=== PATIENT | male | born 1965 | race African-American/Black ===

== ENCOUNTER 2018-03-03 15:29 | Inpatient (IN) | payer MEDICAID, SELFPAY ==
[2018-03-03 15:30] VITALS: BP 131/91; PULSE 108; RESP 16; TEMP 36.9; O2SAT 98; BMI 27.1
--- NOTE | 2018-03-03 15:53 | CT_ITS ---
STUDY: CT ABDOMEN AND PELVIS WITHOUT CONTRAST REASON FOR EXAM: Male, 53 years old. Pain and constipation RADIATION DOSAGE (If Supplied By Facility): CTDIvol = ( 7.91 ) mGy, DLP = ( 381.40 ) mGycm TECHNIQUE: Transaxial images were obtained from the dome of the diaphragm to the symphysis pubis without oral contrast, and without intravenous contrast. Sagittal and coronal images were reconstructed. Individualized dose optimization techniques were used for this CT. COMPARISON: January 02, 2015 FINDINGS: The visualized lung bases are unremarkable. The visualized portions of the heart are within normal limits. There is a trace of fluid in the right subphrenic space Normal liver. Contracted thick-walled gallbladder without calcified stones.. Normal spleen. Normal pancreas. Normal bilateral adrenal glands. Tiny nonobstructing calculus in left kidney. No evidence for renal obstruction or ureteral calculus. There are simple cysts seen within each kidney Normal visualized stomach. There are multiple distended loops of fluid-filled proximal and mid small bowel with a transition point in the mid to distal ileum possibly representing partial small bowel obstruction.. There is diffuse fecal retention seen within the colon.. No evidence for acute appendicitis Normal abdominal aorta. Normal inferior vena cava. Normal retroperitoneum. Normal urinary bladder. Normal abdominal wall. Normal osseous structures. CT/Abdomen/Pelvis without Cont IMPRESSION: Findings which may be consistent with partial small bowel obstruction at the level of the mid to distal ileum.. Contracted thick-walled gallbladder without calcified stones likely physiologic however if concern for gallbladder disease ultrasound recommended. Fluid within the right subphrenic space Other findings as above. Electronically Signed: Shimon Dumont MD at 16:39 EDT , Service support ,
--- NOTE | 2018-03-03 15:57 | ED.DCSUM_ITS ---
- ER Visit Summary Date of Service: 03/03/18 Chief Complaint: Abdominal pain, vomiting History of Present Illness: The patient is a 53 M presents 3 day history abdominal pain, vomiting. Increasing. Vomited 3 times yesterday, 5 times today. No hematemesis. No bowel movement for 3 days. Decreased urine output. History of bowel obstruction, last time 2014. He states had one prior to that in long-term in 2009 requiring surgery. This feels similar. Complains of sweats. No allergies. Records noted 2014 had a bowel obstruction requiring lysis of adhesions, performed by Dr. Brizuela. Physical Examination: General: Alert and oriented ?3, mild distress HEENT: Normocephalic, atraumatic. Moist mucosa membranes Neck: supple, nontender. Cardiovascular: Regular tachycardic rate and rhythm, no murmurs Respiratory: Normal breath sounds, symmetric, no distress Abdomen: Soft, generalized tenderness, mild distention, midline incision from laparotomy, small ventral hernia superiorly. Extremities: Nontender, no edema, pulses intact ?4 Neuro: no focal neurological deficits. Test Results: WBC 7.0. Hemoglobin 14. Creatinine 1.6. Lipase 138. Liver enzymes normal. Lactic acid 2.1. CT abdomen and pelvis: Partial small bowel obstruction mid to distal ileum, thickened gallbladder wall. Emergency Department Course and Treatment: Patient presents similar symptoms with bowel obstruction. Hypoactive bowel sounds. Workup initially. IV fluids morphine Zofran given. Workup notes a partial small bowel obstruction mid to distal ileum. Thickened gallbladder wall. Normal lipase and liver enzymes. Reevaluation was improving however states pain slightly returning. He agreed with NG tube placement. This was ordered. Pending placement along with KUB. Lactic acid 2.1, continue IV fluids. White count 7. Creatinine 1.61, however chronic from previous labs. I did speak with nurse covering for Dr. Brizuela, they will follow as an inpatient. Spoke with hospitalist, Dr. San who agrees to admit. Treatment Plan: [] Disposition: Admission Impression: 1. Partial small bowel obstruction 2. Abdominal pain 3. Chronic kidney disease This note was generated with [employer] software. It may contain incorrect words, spelling, and punctuation that were not noted in review of the chart prior to signing ED Disposition - Plan for ED Patient: Disposition: Acute Care Hospital [facility] Chief Complaint: Constipation Diagnosis: Partial small bowel obstruction, Abdominal pain, Chronic kidney disease Referrals: Care Physician,No Primary [Primary Care Provider] -
[2018-03-03] MEDS: Ondansetron 4 MG/2 ML Vial IV (16:11)
[2018-03-03] MEDS: Morphine 4 MG/ML Syringe IV (16:11)
[2018-03-03] MEDS: 0.9% Normal Saline 1,000 ML 1000 ML IV (16:12)
[2018-03-03 16:35] LABS: Absolute Lymphocyte Count 1.56 X10^3/ul (0.83-4.51); Absolute Neutrophil Count 4.8 X10^3/uL (2.0-7.7); Basophil# 0.04 X10^3/uL; Basophil% 0.6 % (0-1); Eosinophil# 0.13 X10^3/uL; Eosinophils% 1.9 % (0-5); Hematocrit 40.3 % (40-54); Lymphocyte # 1.56 X10^3/ul (4.0); Lymphocyte % 22.4 % (19-41); Mean Corp Hgb Conc 34.7 g/gl (32-36); Mean Corpuscular Hgb 30.4 pg (27.0-32.0); Mean Corpuscular Volume 87.4 fL (80-94); Mean Platelet Vol. 10.2 fl (6.2-12.0); Monocyte# 0.45 X10^3/uL; Monocyte% 6.5 % (0-10); Neutrophil # 4.76 X10^3/uL (2.7-7.7); Neutrophil % 68.5 % (47-70); POSITIVE COUNT NO; POSITIVE DIFFERENTIAL NO; POSITIVE MORPHOLOGY NO; Platelet Count 231 K/mm3 (150-450); RBC Distribution Width CV 13.8 % (11.6-14.6); RBC Distribution Width SD 44.3 fl (35.1-43.9); Red Blood Count 4.61 M/mm3 (4.6-6.2)
[2018-03-03 16:44] LABS: ALB/GLOB Ratio 0.9 RATIO (0.9-2.4); AST(SGOT) 23 U/L (15-37); Alanine Aminotransfer ALT/SGPT 37 U/L (16-61); Albumin, Serum 3.1 g/dL (3.2-5.0); Alkaline Phosphatase 121 U/L (45-117); Anion Gap 8 (5-15); BUN 14 mg/dL (7-18); BUN/Creat Ratio 8.7 RATIO (10-20); Calcium,Total 8.9 mg/dL (8.5-10.1); Chloride 109 mmol/L (98-107); Creatinine, Serum 1.61 mg/dL (0.70-1.30); EST Glomerular Filtration Rate 48 mL/min (>60); Est Glom Filt Rate - Afr Amer 58 mL/min (>60); Globulin 3.6 g/dL (2.2-4.2); Glucose 228 mg/dL (74-106); Lipase 138 U/L (73-393); Potassium 3.9 mmol/L (3.5-5.1); Protein, Total 6.7 g/dL (6.4-8.2); Sodium Level 141 mmol/L (136-145)
[2018-03-03 17:10] LABS: Lactic Acid 2.1 mmol/L (0.4-2.0)
--- NOTE | 2018-03-03 17:10 | ED.RN ---
DR. CRUZ NOTIFIED OF LACTIC ACID RESULT OF 2.1 FROM LAB. NO ORDERS GIVEN.
--- NOTE | 2018-03-03 17:30 | PCM.HP.STD ---
Problem List (1) Partial small bowel obstruction Status: Acute (2) Chronic kidney disease Status: Chronic (3) Noncompliance with medication regimen Status: Chronic (4) HTN (hypertension) Status: Chronic (5) DM type 2 (diabetes mellitus, type 2) Status: Chronic (6) Tobacco dependence Status: Chronic History of Present Illness Date of Admission: 03/03/18 Chief Complaint: Abdominal pain, nausea vomiting. The patient is a 53 year old M with past medical history as mentioned above presented to the emergency room because of abdominal pain, nausea vomiting. His symptoms started 3 days ago with abdominal pain, generalized abdominal pain, dull aching pain, 10 out of 10 in severity, not radiating, intermittent, associated with nausea and vomiting as well as the patient and without aggravating or relieving factors. He mentioned that he has no bowel movement for the last 3 days. He has a history of small bowel obstruction back in Dec, 2014 that required laparoscopic lysis of adhesions and laparoscopic appendectomy. He mentioned that he had another episode of bowel obstruction back in 2009 and also required surgery. In the ED, his vital signs were stable. His routine blood work is remarkable for creatinine of 1.61, otherwise unremarkable. Lactic acid is 2.1. LFT and lipase were normal. CT scan abdomen and pelvis without contrast revealed findings consistent with partial small bowel obstruction. He is being admitted for partial small bowel obstruction, dehydration. Past Medical History Past Medical History (Chronic Problems): Chronic Problems Chronic kidney disease (Chronic) Noncompliance with medication regimen (Chronic) HTN (hypertension) (Chronic) DM type 2 (diabetes mellitus, type 2) (Chronic) Tobacco dependence (Chronic) Allergies No Known Allergies Allergy (Verified 03/03/18 15:31) Home Medications: Ambulatory Orders Medication Instructions Recorded Acetaminophen 1,000 mg PO BID 01/06/17 Amlodipine [Norvasc] 5 mg PO DAILY 01/06/17 Ascorbic Acid 500 mg PO DAILY 01/06/17 Folic Acid 1 mg PO DAILY@0800 01/06/17 Insulin NPH Hum/Reg Insulin Hm 10 unit SQ Q6H 01/06/17 [Novolin 70-30 100 Unit/ml Vial] Metoprolol Tartrate [Lopressor 25 mg PO BID 01/06/17 (Beta Jace)] Multivitamin [Daily Multiple 1 each PO DAILY 01/06/17 Vitamin] Oxycodone [Oxyir] 5 mg PO Q4H PRN PRN 01/06/17 Thiamine HCl [B-1] 100 mg PO DAILY 01/06/17 Surgical History: appendectomy, - - Laparoscopic lysis of adhesions for small bowel obstruction. Appendectomy. Psychiatric History: No pertinent psych hx Smoking Status: Current every day smoker Tobacco Use: Cigarettes Alcohol: Occasional Drugs: None - *Family History Paternal History Items: Diabetes Maternal History Items: No pertinent history Review of Systems Constitutional: Reports: Anorexia. Denies: Chills, Fever, Weakness Eyes: Denies: Blurred vision, Double vision, Drainage, Redness HEENT: Denies: Difficulty Hearing, Ear Pain, Eye Pain, Nasal Congestion, Sinus Drainage, Sore Throat Cardiovascular: Denies: Chest Pain, Chest Pressure, Chest Tightness, Palpitations, Syncope Respiratory: Denies: Cough, Pleuritic Pain, Shortness of Breath, Sputum production, Wheezing Gastrointestinal: Reports: Abdominal Pain, Constipation, Nausea, Vomiting. Denies: Diarrhea, Hematochezia, Melena Genitourinary: Denies: Dysuria, Frequency, Hematuria Musculoskeletal: Denies: Arm Pain, Back Pain, Foot Pain Skin: Denies: Dryness, Rash Neurological: Denies: Balance problems, Change in Speech, Headaches, Incoordination, Numbness Psychiatric: Denies: Anxiety, Depression VTE Information - Inpt Only VTE Present on Admission: No VTE Mechan Device Prophylaxis: SCD's, None VTE Pharm Prophylaxis ordered?: No Patient Problems: Active and Suspected Problems Partial small bowel obstruction (Acute) - Physical Exam General: Alert, Oriented x3, Cooperative, - - Restless, anxious. HEENT: Atraumatic, PERRLA, EOMI, Normocephalic Oral: Moist Mucosa, No Gingival or Mucosal Lesions/ Ulcerations Neck: Supple, No JVD, Negative Carotid Bruits, Trachea Midline, Thyroid Normal Size and Texture Lungs: Clear to auscultation, No rhonchi, No wheeze, No rales, Diminished Cardiovascular: Regular rate, Regular Rhythm, Normal S1, Normal S2, PMI Normal Abdomen: No Hepato-splenomegaly, Hypoactive Bowel Sounds, Distended, Tender, - - Voluntary guarding. Extremities: No clubbing, No cyanosis, No edema Skin: No rashes, No breakdown Lymphatic: No Cervical, Supraclavicular, or Inguinal Adenopathy Neurological: Cranial nerves II-XII grossly intact, Motor Exam 5/5 strength throughout Psych/Mental Status: Anxious, Restless, Alert and oriented to time, place, person, mood and affect Vital Signs Temp Pulse Resp BP Pulse Ox 98.5 F 108 H 16 131/91 H 98 03/03/18 15:30 03/03/18 15:30 03/03/18 15:30 03/03/18 15:30 03/03/18 15:30 Weight: 200 lb Body Mass Index (BMI) 27.1 Finger Stick Blood Glucose 287 Laboratory Tests Past 24 Hrs 03/03/18 03/03/18 03/03/18 16:15 16:15 16:15 WBC 7.0 RBC 4.61 Hgb 14.0 Hct 40.3 MCV 87.4 MCH 30.4 MCHC 34.7 RDW 13.8 RDW Differential 44.3 H Plt Count 231 MPV 10.2 Immature Gran % (Auto) 0.100 Neut % (Auto) 68.5 Lymph % (Auto) 22.4 [place] % (Auto) 6.5 Eos % (Auto) 1.9 Baso % (Auto) 0.6 Absolute Neuts (auto) 4.8 Absolute Lymphs (auto) 1.56 Total Counted Not Reportable Sodium 141 Potassium 3.9 Chloride 109 H Carbon Dioxide 24.0 Anion Gap 8 BUN 14 Creatinine 1.61 H Estim Creat Clear Calc 56.90 Est GFR (MDRD) Af Amer 58 L Est GFR (MDRD) Non-Af 48 L BUN/Creatinine Ratio 8.7 L Glucose 228 H Lactic Acid 2.1 H Calcium 8.9 Total Bilirubin 0.20 AST 23 ALT 37 Alkaline Phosphatase 121 H Total Protein 6.7 Albumin 3.1 L Globulin 3.6 Albumin/Globulin Ratio 0.9 Lipase 138 Clinical Impression(s) from Imaging Studies Abdomen/Pelvis CT 03/03/18 15:53 IMPRESSION: Findings which may be consistent with partial small bowel obstruction at the level of the mid to distal ileum.. Contracted thick-walled gallbladder without calcified stones likely physiologic however if concern for gallbladder disease ultrasound recommended. Fluid within the right subphrenic space Other findings as above. Electronically Signed: Shimon Dumont MD at 16:39 EDT , Service support , Assessment/Plan All Active Problems Partial small bowel obstruction (Acute) Hyperglycemia (Resolved) Hypokalemia (Resolved) This is a 53 years old male patient presented to the medicine because of abdominal pain, nausea and vomiting and was found to have partial small bowel obstruction on CT scan abdomen in context of history of small bowel obstruction status post lysis of adhesions. #1 partial small bowel obstruction: CT scan abdomen and pelvis without contrast reviewed, findings consistent with partial small bowel obstruction. He has a history of small bowel obstruction back in Dec, 2014 that required laparoscopic lysis of adhesions and laparoscopic appendectomy. At this time, vital signs are stable. Routine blood work reviewed. Plan: Admit to [facility] floor, cardiac monitoring, keep on n.p.o., IV fluids, IV antiemetics, IV morphine as needed for pain, repeat KUB tomorrow morning, general surgery consult, repeat CBC and BMP tomorrow morning, PT OT evaluation and treatment. #2 dehydration: Secondary to above. Admission creatinine is 1.61. Over the last year, his creatinine has been around 1.3-1.4 mg/dL. Plan: IV fluids, input output chart, repeat BMP tomorrow morning #3 hypertension: Blood pressure stable, continue home medications when home medication list updated, start IV Cardizem as needed. #4 type 2 diabetes mellitus: ADA diet, Accu-Cheks, insulin sliding scale, continue NPH insulin when home medication list updated. #5 DVT prophylaxis: SCDs. This note was generated with [email or web address] dictation software. It may contain incorrect words, spelling, and punctuation that were not noted in checking the note before signing. Code Visit Inpatient E&M: 13523 Init Hosp L3
[2018-03-03 17:59] VITALS: BMI 26.7
[2018-03-03 18:04] VITALS: BMI 26.7
[2018-03-03 18:21] VITALS: BP 139/72; PULSE 63; RESP 20; TEMP 37.8; O2SAT 98
--- NOTE | 2018-03-03 18:36 | NURSING ---
Home med rec. completed with patient and called [facility]. Pt reports he does not take his medications as he should.
[2018-03-03] MEDS: 0.9% Normal Saline 1,000 ML 100 ML IV (19:01)
[2018-03-03] MEDS: Morphine 2 MG/ML Syringe IV ×3 (19:02→22:52)
[2018-03-03 19:16] LABS: Bedside Glucose 191 mg/dL (70-110)
--- NOTE | 2018-03-03 20:18 | CON.PCM_ITS ---
Reason for Consult Date of Consultation: 03/03/18 History of Present Illness: The patient is a 53 year old M who presents with a three-day history of a small bowel obstruction. The patient presents with abdominal distention, nausea and vomiting along with obstipation. he presented to [facility] emergency department. The patient had a normal white blood cell count. He had a normal bicarbonate level. Had a slightly elevated lactic acid. He underwent CT scan of the abdomen and pelvis which demonstrated a small bowel obstruction with a transition point felt to be in the mid small bowel. He was admitted to medicine service, and we'll refer nasogastric tube was placed and I was consulted. The patient is a relatively poor historian. He understands he underwent an abdominal surgical procedure. He is uncertain why when he was incarcerated at the [facility] around 2006. We have no records of that surgical procedure, but he has a midline laparotomy incision. He noted episodes of intermittent small bowel obstruction. Following that area. He was seen by Dr. Lan Davison in 2010 for a small bowel obstruction resolved with conservative management. He was readmitted in 2014. I was consulted and performed a laparoscopic lysis of adhesions which took probably 45 minutes and performed a laparoscopic appendectomy. His adhesions were noted to be to the midline and multiple intraloop adhesions. he returns now with the above complaints. Past Medical History Past Medical History (Chronic Problems): Chronic Problems Chronic kidney disease (Chronic) Noncompliance with medication regimen (Chronic) HTN (hypertension) (Chronic) DM type 2 (diabetes mellitus, type 2) (Chronic) Tobacco dependence (Chronic) Allergies No Known Allergies Allergy (Verified 03/03/18 15:31) Home Medications: Ambulatory Orders Medication Instructions Recorded Insulin NPH Hum/Reg Insulin Hm 15 unit SQ BID 01/06/17 [Novolin 70-30 100 Unit/ml Vial] Multivitamin [Daily Multiple 1 each PO DAILY 01/06/17 Vitamin] Aspirin [Aspirin EC] 81 mg PO DAILY 03/03/18 Cetirizine HCl [Zyrtec] 10 mg PO DAILY PRN 03/03/18 Gabapentin [Neurontin] 100 mg PO DAILY PRN 03/03/18 Lisinopril [Zestril] 10 mg PO DAILY 03/03/18 Omeprazole [Omeprazole] 20 mg PO DAILY 03/03/18 Rosuvastatin Calcium [Crestor] 40 mg PO QHS 03/03/18 traZODone [Desyrel] 50 mg PO QHS 03/03/18 Surgical History: appendectomy, - - Laparoscopic lysis of adhesions for small bowel obstruction. Appendectomy. previous unknown surgical intervention while incarcerated at [facility] for which he underwent a midline laparotomy incision Psychiatric History: No pertinent psych hx Smoking Status: Current every day smoker Tobacco Use: Cigarettes Alcohol: Occasional Drugs: None - *Family History Maternal History Items: No pertinent history Paternal History Items: Diabetes Review of Systems Constitutional: Denies: Chills, Fever, Weight Change HEENT: Denies: Head Aches, Sinus Congestion, Sinus Drainage Cardiovascular: Denies: Chest Pain, Palpitations Respiratory: Denies: Cough, Shortness of breath at rest, Sputum production Gastrointestinal: Reports: Abdominal Pain, Nausea, Vomiting Genitourinary: Denies: Dysuria Musculoskeletal: Denies: Joint Pain, Joint Tenderness Skin: Denies: Rash, Wounds Neurological: Denies: Numbness, Tingling, Focal weakness Psychiatric: Denies: Anxiety, Depression, Homicidal Ideations, Suicidal Ideations Hematologic/ Lymphatic: Denies: Easy Bruising, Easy Bleeding Patient Problems: Active and Suspected Problems Abdominal pain (Acute) Partial small bowel obstruction (Acute) - Physical Exam General: Alert, Oriented x3, Cooperative, No apparent distress Lungs: Clear to auscultation, Normal air movement Cardiovascular: Regular rate, Regular Rhythm Abdomen: Bowel Sounds Present, Soft, Tender - diffusely tender without true peritoneal signs Vital Signs Temp Pulse Resp BP Pulse Ox 100.1 F H 63 20 H 139/72 H 98 03/03/18 18:21 03/03/18 18:21 03/03/18 18:21 03/03/18 18:21 03/03/18 18:21 Oxygen Delivery Method Room Air Weight: 89.358 kg Body Mass Index (BMI) 26.7 POC Glucose 03/03/18 19:08 POC Glucose 191 H Assessment/Plan All Active Problems Abdominal pain (Acute) Partial small bowel obstruction (Acute) Hyperglycemia (Resolved) Hypokalemia (Resolved) recurring small bowel obstruction, I am concerned the one loop of bowel does seem to demonstrate some thickening. This is in the mid abdomen just left of midline. It seems likely. He recurred with his adhesions as noted in his prior surgical intervention. I agree with maintaining the patient nothing by mouth with IV fluid hydration. I would repeat a lactic acid level to assure this is normalizing and just from dehydration. I would plan to repeat abdominal multiview in the morning area. If this is failed to improve, would consider operative exploration again. I discussed with the patient that in general, most small bowel obstruction resolved with conservative management, but I am somewhat concerned about his noted a degree of tenderness, even though he seems comfortable. When talking to him and based on the findings of a thickened loop of small bowel on CT scan.
[2018-03-03 20:23] LABS: Reflex Lactate? Y
[2018-03-03 21:49] LABS: Lactic Acid 0.9 mmol/L (0.4-2.0)
[2018-03-03 23:25] VITALS: PULSE 55
[2018-03-03 23:26] LABS: Bedside Glucose 182 mg/dL (70-110)
[2018-03-04] VITALS (10 sets, daily range): BP systolic 133–142; BP diastolic 74–88; PULSE 47–90; RESP 16–18; TEMP 36.7–37.3; O2SAT 94–99
[2018-03-04] MEDS: Morphine 2 MG/ML Syringe IV ×8 (01:24→21:25)
--- NOTE | 2018-03-04 02:35 | RAD_ITS ---
STUDY: X-RAY - ABDOMEN/PELVIS REASON FOR EXAM: Male, 53 years old. Small bowel obstruction TECHNIQUE: 2 views COMPARISON: None. FINDINGS: There are degenerative changes involving both hip joints especially the left with narrowing of the joints. There is significant buttressing of the femoral neck. There are no acute fractures or dislocations. Mild fecal stasis with no small bowel obstruction and no free intraperitoneal air. RAD/Abdomen Single View (Portable) IMPRESSION: No acute findings in the abdomen. Degenerative changes of the hips especially the left Electronically Signed: Jean Angeles, at 4:45 EDT Tel , Service support ,
[2018-03-04] MEDS: 0.9% Normal Saline 1,000 ML 100 ML IV ×3 (03:41→19:09)
[2018-03-04 06:15] LABS: Bedside Glucose 121 mg/dL (70-110)
[2018-03-04 06:29] LABS: Absolute Lymphocyte Count 2.23 X10^3/ul (0.83-4.51); Absolute Neutrophil Count 2.5 X10^3/uL (2.0-7.7); Basophil# 0.02 X10^3/uL; Basophil% 0.4 % (0-1); Eosinophil# 0.12 X10^3/uL; Eosinophils% 2.3 % (0-5); Hematocrit 38.5 % (40-54); Hemoglobin 12.7 g/dl (13.0-16.5); Lymphocyte # 2.23 X10^3/ul (4.0); Lymphocyte % 42.4 % (19-41); Mean Corpuscular Hgb 29.8 pg (27.0-32.0); Mean Corpuscular Volume 90.4 fL (80-94); Mean Platelet Vol. 10.1 fl (6.2-12.0); Monocyte% 7.6 % (0-10); Neutrophil # 2.48 X10^3/uL (2.7-7.7); Neutrophil % 47.1 % (47-70); Platelet Count 203 K/mm3 (150-450); RBC Distribution Width CV 14.1 % (11.6-14.6); RBC Distribution Width SD 46.5 fl (35.1-43.9); Red Blood Count 4.26 M/mm3 (4.6-6.2); White Blood Count 5.3 K/mm3 (4.4-11.0)
[2018-03-04 06:33] LABS: Anion Gap 6 (5-15); BUN 10 mg/dL (7-18); BUN/Creat Ratio 7.4 RATIO (10-20); Calcium,Total 8.4 mg/dL (8.5-10.1); Chloride 111 mmol/L (98-107); Creatinine, Serum 1.36 mg/dL (0.70-1.30); EST Glomerular Filtration Rate 58 mL/min (>60); Est Glom Filt Rate - Afr Amer 70 mL/min (>60); Estimated Creatinine Clearance 67.36 ml/min; Glucose 128 mg/dL (74-106); Potassium 3.8 mmol/L (3.5-5.1); Sodium Level 145 mmol/L (136-145)
[2018-03-04 06:49] LABS: POSITIVE COUNT NO; POSITIVE DIFFERENTIAL NO; POSITIVE MORPHOLOGY NO
--- NOTE | 2018-03-04 07:14 | CT_ITS ---
STUDY: CT ABDOMEN AND PELVIS WITHOUT CONTRAST REASON FOR EXAM: Male, 53 years old. Abdominal pain RADIATION DOSAGE (If Supplied By Facility): CTDIvol = ( 9.63 ) mGy, DLP = ( 481.22 ) mGycm TECHNIQUE: Transaxial images were obtained from the lower chest to the upper thighs with oral contrast, and without intravenous contrast. Sagittal and coronal images were reconstructed. Individualized dose optimization techniques were used for this CT. COMPARISON: March 03, 2018 FINDINGS: There is minimal dependent atelectasis in both lung bases. There is no pleural effusion. The heart is normal in size. The liver is unremarkable. The gallbladder and biliary ducts are unremarkable. The spleen is unremarkable. The pancreas is unremarkable. The adrenal glands are unremarkable. There are benign cysts in the right kidney. The right kidney shows a lobular contour consistent with scarring. There is no dilatation of the collecting system in the right kidney. There are benign cysts in the left kidney. There is a 2 mm nonobstructing stone in the upper pole of the left kidney. There is no dilatation of the collecting system in the left kidney. The stomach is unremarkable. Small bowel loops are prominent. There are scattered areas of wall thickening in the small bowel, most severe in the left lower quadrant. Oral contrast extends into the ileum. The colon is unremarkable. There is non-visualization of the appendix. The aorta and branch vessels are unremarkable. The IVC is unremarkable. The retroperitoneum is unremarkable. There is no free fluid in the abdomen. The urinary bladder is unremarkable. The prostate is normal in size. There is minimal fluid in the pelvis. There are small phleboliths in the lower pelvis bilaterally. There is a small umbilical hernia containing fat. There are mild degenerative changes in the visualized spine. CT/Abdomen/Pel W ORAL Cont Only IMPRESSION: There is no bowel obstruction. Small bowel ileus is present, and there are scattered areas of wall thickening in the small bowel which are nonspecific and can be seen with an infectious or inflammatory process. This is most severe in the left lower quadrant. There is minimal ascites in the pelvis. There is no free air. There is no significant lymphadenopathy. Electronically Signed: Courtney Cohen MD at 10:33 EDT Tel Direct: [phone], Service support ,
--- NOTE | 2018-03-04 07:58 | PCM.PN.SRG ---
Patient Problems: Active and Suspected Problems Abdominal pain (Acute) Partial small bowel obstruction (Acute) Subjective: still complaining of abdominal pain, complaining of being hungry, wants food - Physical Exam General: Alert, Oriented x3 Lungs: Clear to auscultation, Normal air movement Cardiovascular: Regular rate, Regular Rhythm Abdomen: Bowel Sounds Present, Soft, Tender - mild diffusely Vital Signs Temp Pulse Resp BP Pulse Ox 98.9 F 55 L 16 142/74 H 98 03/04/18 06:21 03/04/18 06:21 03/04/18 06:21 03/04/18 06:21 03/04/18 06:21 Oxygen Delivery Method Room Air Weight: 89.358 kg Body Mass Index (BMI) 26.7 Intake and Output for Last 24 Hours 03/02/18 03/03/18 03/04/18 23:59 23:59 23:59 Intake Total 960 / 960 Balance 960 / 960 Laboratory Tests Past 24 Hrs 03/03/18 03/04/18 03/04/18 19:11 05:47 05:47 WBC 5.3 RBC 4.26 L Hgb 12.7 L Hct 38.5 L MCV 90.4 MCH 29.8 MCHC 33.0 RDW 14.1 RDW Differential 46.5 H Plt Count 203 MPV 10.1 Immature Gran % (Auto) 0.200 Neut % (Auto) 47.1 Lymph % (Auto) 42.[address] [place] % (Auto) 7.6 Eos % (Auto) 2.3 Baso % (Auto) 0.4 Absolute Neuts (auto) 2.5 Absolute Lymphs (auto) 2.23 Total Counted Not Reportable Sodium 145 Potassium 3.8 Chloride 111 H Carbon Dioxide 28.0 Anion Gap 6 BUN 10 Creatinine 1.36 H Estim Creat Clear Calc 67.36 Est GFR (MDRD) Af Amer 70 Est GFR (MDRD) Non-Af 58 L BUN/Creatinine Ratio 7.4 L Glucose 128 H Lactic Acid 0.9 Calcium 8.4 L POC Glucose 03/04/18 03/03/18 03/03/18 06:10 23:18 19:08 POC Glucose 121 H 182 H 191 H Medical Necessity - Tobacco Use Smoking Status: Current every day smoker Tobacco Use: Cigarettes Assessment/Plan All Active Problems Abdominal pain (Acute) Partial small bowel obstruction (Acute) Hyperglycemia (Resolved) Hypokalemia (Resolved) recurring small bowel obstruction, I am concerned the one loop of bowel does seem to demonstrate some thickening. This is in the mid abdomen just left of midline. x-ray this morning. Says. No signs of bowel obstruction area. There was however very limited air in the small bowel on CT scan. The patient is still complaining of abdominal pain but did sneak out to the [employer] station and eat luis crackers. He also states he is hungry and wants food. Given these discrepancies, I plan to obtain a CT scan with oral contrast to see if this progresses past, my area of concern since the first scan was not performed with contrast. I agree with maintaining the patient nothing by mouth with IV fluid hydration. Repeat lactic acid level did normalize based on the CT scan, I would consider operative exploration again. I discussed with the patient that in general, most small bowel obstruction resolved with conservative management, but I am somewhat concerned about his noted a degree of tenderness, even though he seems comfortable.
[2018-03-04 11:31] LABS: Bedside Glucose 217 mg/dL (70-110)
[2018-03-04] MEDS: Insulin Lispro 100 UNIT/ML INSULN.PEN SC (13:01)
[2018-03-04] MEDS: 0.9% NaCl Peripheral Flush Adult/Peds IV ×2 (13:02→21:26)
[2018-03-04 17:00] LABS: Bedside Glucose 119 mg/dL (70-110)
--- NOTE | 2018-03-04 17:21 | PN_ITS ---
Patient Problems: Active and Suspected Problems Abdominal pain (Acute) Partial small bowel obstruction (Acute) Subjective: This morning patient reports that excruciating diffuse pain of his abdomen. He had some nausea but no vomiting. Vitals/I&O's: Vital Signs Temp Pulse Resp BP Pulse Ox 98.8 F 48 L 18 140/76 H 94 03/04/18 12:58 03/04/18 15:02 03/04/18 12:58 03/04/18 12:58 03/04/18 12:58 Oxygen Delivery Method Room Air Weight: 89.358 kg Body Mass Index (BMI) 26.7 Intake and Output for Last 24 Hours 03/02/18 03/03/18 03/04/18 23:59 23:59 23:59 Intake Total 1693 / 1693 Balance 1693 / 1693 General: Alert, Oriented x3, Cooperative HEENT: Atraumatic, PERRLA, EOMI, Normocephalic Neck: Supple, No JVD, Negative Carotid Bruits Lungs: Clear to auscultation, Normal air movement Cardiovascular: Regular rate, No murmurs Abdomen: Non-Distended, Tender Extremities: No edema, Capillary Refill Less than 3 Seconds Skin: No rashes, No breakdown Musculoskeletal: No Tenderness to Palpation of Joints or Extremities Neurological: Cranial nerves II-XII grossly intact Psych/Mental Status: Normal Affect, Appropriate Laboratory Results 03/03/18 19:08: POC Glucose 191 H 03/03/18 19:11: Lactic Acid 0.9 03/03/18 23:18: POC Glucose 182 H 03/04/18 05:47: WBC 5.3, RBC 4.26 L, Hgb 12.7 L, Hct 38.5 L, MCV 90.4, MCH 29.8 , MCHC 33.0, RDW 14.1, RDW Differential 46.5 H, Plt Count 203, MPV 10.1, Immature Gran % (Auto) 0.200, Neut % (Auto) 47.1, Lymph % (Auto) 42.4 H, [place] % (Auto) 7.6, Eos % (Auto) 2.3, Baso % (Auto) 0.4, Absolute Neuts (auto) 2.5, Absolute Lymphs (auto) 2.23, Total Counted Not Reportable 03/04/18 05:47: Sodium 145, Potassium 3.8, Chloride 111 H, Carbon Dioxide 28.0, Anion Gap 6, BUN 10, Creatinine 1.36 H, Estim Creat Clear Calc 67.36, Est GFR ( MDRD) Af Amer 70, Est GFR (MDRD) Non-Af 58 L, BUN/Creatinine Ratio 7.4 L, Glucose 128 H, Calcium 8.4 L 03/04/18 06:10: POC Glucose 121 H 03/04/18 11:15: POC Glucose 217 H 03/04/18 16:52: POC Glucose 119 H Current Medications Hydralazine HCl (Apresoline Iv) 5 mg IV Q6H PRN PRN PRN Reason: for SBP>160 Sodium Chloride () 1,000 mls @ 100 mls/hr IV .Q10H KAYDEN Last Admin: 03/04/18 05:35 Dose: 100 mls/hr Insulin Human Lispro (Humalog Kwikpen (Bkc)) 0 unit SC Q6 KAYDEN PRN Reason: Protocol Last Admin: 03/04/18 17:02 Dose: Not Given Morphine Sulfate () 1 - 2 mg IV Q1H PRN PRN Reason: SEVERE PAIN (6-10/10) Last Admin: 03/04/18 17:02 Dose: 2 mg Ondansetron HCl (Zofran) 4 mg IV Q6H PRN PRN PRN Reason: NAUSEA/VOMITING Sodium Chloride () 5 - 30 ml IV UD PRN PRN Reason: SALINE FLUSH Last Admin: 03/04/18 13:02 Dose: 10 ml Medical Necessity - Tobacco Use Smoking Status: Current every day smoker Tobacco Use: Cigarettes Assessment/Plan All Active Problems Abdominal pain (Acute) Partial small bowel obstruction (Acute) Hyperglycemia (Resolved) Hypokalemia (Resolved) 1.Small bowel obstruction. NPO at this time. Will continue patient on IV hydration, pain control and antiemetics. Surgery is following and plans to do a repeat CT of his abdomen with contrast to evaluate extent of small bowel obstruction. 2.Dehydration His lactic acid level has normalized Continue with IV hydration. 3.NOBLE on CKD His lisinopril is on hold. His creatinine has normalized to his baseline with IV hydration. Continue IV fluids since he is n.p.o. 4.Hypertension We will continue to hold his lisinopril at this time because of recent NOBLE Hydralazine as needed for systolic blood pressure more than 160. 4.Type 2 diabetes Short acting Correction insulin every 6 hours to keep his blood glucose between 140-180. DVT prophylaxis SCD. Code Visit Inpatient E&M: 31055 Subs Hosp L2
--- NOTE | 2018-03-04 19:12 | NURSING ---
Patient was found by this RN at the refreshment center heating himself up a ready meal. This RN informed him that he was not allowed to eat anything that was in the meal, he was only allowed clear liquids. Patient was escorted back to room.
[2018-03-05] MEDS: Insulin Lispro 100 UNIT/ML INSULN.PEN SC (00:01)
[2018-03-05] MEDS: 0.9% NaCl Peripheral Flush Adult/Peds IV ×2 (00:07→08:30)
[2018-03-05] MEDS: Morphine 2 MG/ML Syringe IV ×3 (00:08→08:30)
[2018-03-05 00:15] LABS: Bedside Glucose 170 mg/dL (70-110)
--- NOTE | 2018-03-05 01:34 | NURSING ---
pt has been seen by staff member getting food form the kitchenette. Pt has been reeducated about his diet. voices understanding.
[2018-03-05 02:10] VITALS: PULSE 45
--- NOTE | 2018-03-05 02:20 | NURSING ---
upon entering pt's room this nurse notices cracker packages on pt's bedside table. This nurse questions pt about eating the crackers. Pt states that he was starving so he ate them. This nurse reeducated pt about the need to follow his diet. pt's voices understanding.
[2018-03-05 02:25] VITALS: BP 140/77; PULSE 56; RESP 16; TEMP 36.9; O2SAT 98
[2018-03-05] MEDS: 0.9% Normal Saline 1,000 ML 100 ML IV (05:11)
[2018-03-05 05:21] LABS: Bedside Glucose 121 mg/dL (70-110)
[2018-03-05 06:11] VITALS: PULSE 47
--- NOTE | 2018-03-05 07:53 | PCM.PN.SRG ---
Patient Problems: Active and Suspected Problems Abdominal pain (Acute) Partial small bowel obstruction (Acute) Subjective: hungry, wanting food, no flatus, no bowel movement - Physical Exam General: Alert, Oriented x3 Lungs: Clear to auscultation, Normal air movement Cardiovascular: Regular rate, No murmurs Vital Signs Temp Pulse Resp BP Pulse Ox 98.5 F 47 L 16 140/77 H 98 03/05/18 02:25 03/05/18 06:11 03/05/18 02:25 03/05/18 02:25 03/05/18 02:25 Oxygen Delivery Method Room Air Weight: 89.358 kg Body Mass Index (BMI) 26.7 Intake and Output for Last 24 Hours 03/03/18 03/04/18 03/05/18 23:59 23:59 23:59 Intake Total 3768 / 3768 1156 / 1156 Output Total 1100 / 1100 Balance 3768 / 3768 56 / 56 POC Glucose 03/05/18 03/04/18 03/04/18 05:16 23:58 16:52 POC Glucose 121 H 170 H 119 H 03/04/18 11:15 POC Glucose 217 H Medical Necessity - Tobacco Use Smoking Status: Current every day smoker Tobacco Use: Cigarettes Assessment/Plan All Active Problems Abdominal pain (Acute) Partial small bowel obstruction (Acute) Hyperglycemia (Resolved) Hypokalemia (Resolved) recurring small bowel obstruction, I am concerned the one loop of bowel does seem to demonstrate some thickening. This is in the mid abdomen just left of midline. x-ray this morning. Says. No signs of bowel obstruction area. There was however very limited air in the small bowel on CT scan. The patient is still complaining of abdominal pain but did sneak out to the refreshment station and eat luis crackers. He also states he is hungry and wants food. Given these discrepancies, I obtained a CT scan with oral contrast. The contrast did progress beyond the area of concern yesterday., And traveled almost to the cecum. There were some areas of small bowel that appeared thickened but there were no signs consistent with obstruction. he took in approximately 2 L of clear liquid yesterday with no nausea or vomiting. the patient this morning is again asking for solid food but complaining of abdominal pain. At this point in time, I would have him continue on clear liquids as gastroenteritis. The most likely diagnosis. I plan to obtain an abdominal multiview to see bowel gas pattern where the contrast does travel to. May consider rectal suppository/enema.
--- NOTE | 2018-03-05 08:00 | RAD_ITS ---
STUDY: X-RAY - ABDOMEN/PELVIS REASON FOR EXAM: Male, 53 years old. Abdominal distention. Partial small bowel obstruction. TECHNIQUE: AP supine and upright views of the abdomen and pelvis. COMPARISON: Comparison is made with prior study dated March 04, 2018. FINDINGS: Mild degree of increased markings at the left lung base suggestive of mild bibasilar atelectasis. Oral contrast is seen throughout the colon. Gas is seen in the rectum. There is no evidence of small bowel obstruction on this examination. There is no demonstrated free abdominal air. The visualized liver, spleen and kidneys are grossly normal in size and morphology. Normal soft tissue structures. Normal visualized osseous structures. RAD/Abd Inc Decub and/or Erect IMPRESSION: Oral contrast is seen throughout the colon. Air is seen in the rectum. Electronically Signed: Cesar Joya MD at 12:41 EDT Tel [phone], Service support ,
[2018-03-05 09:11] VITALS: BP 145/84; PULSE 47; RESP 16; TEMP 36.7; O2SAT 98
[2018-03-05 10:00] VITALS: PULSE 57
--- NOTE | 2018-03-05 10:44 | PCM.PN.HOSP ---
Patient Problems: Active and Suspected Problems Abdominal pain (Acute) Partial small bowel obstruction (Acute) Vitals/I&O's: Vital Signs Temp Pulse Resp BP Pulse Ox 98.1 F 47 L 16 145/84 H 98 03/05/18 09:11 03/05/18 09:11 03/05/18 09:11 03/05/18 09:11 03/05/18 09:11 Oxygen Delivery Method Room Air Weight: 89.358 kg Body Mass Index (BMI) 26.7 Intake and Output for Last 24 Hours 03/03/18 03/04/18 03/05/18 23:59 23:59 23:59 Intake Total 3768 / 3768 1156 / 1156 Output Total 1100 / 1100 Balance 3768 / 3768 56 / 56 Laboratory Results 03/04/18 11:15: POC Glucose 217 H 03/04/18 16:52: POC Glucose 119 H 03/04/18 23:58: POC Glucose 170 H 03/05/18 05:16: POC Glucose 121 H Current Medications Hydralazine HCl (Apresoline Iv) 5 mg IV Q6H PRN PRN PRN Reason: for SBP>160 Sodium Chloride () 1,000 mls @ 100 mls/hr IV .Q10H KAYDEN Last Admin: 03/05/18 05:11 Dose: 100 mls/hr Insulin Human Lispro (Humalog Kwikpen (Bkc)) 0 unit SC Q6 KAYDEN PRN Reason: Protocol Last Admin: 03/05/18 05:17 Dose: Not Given Morphine Sulfate () 1 - 2 mg IV Q1H PRN PRN Reason: SEVERE PAIN (6-10/10) Last Admin: 03/05/18 08:30 Dose: 2 mg Ondansetron HCl (Zofran) 4 mg IV Q6H PRN PRN PRN Reason: NAUSEA/VOMITING Sodium Chloride () 5 - 30 ml IV UD PRN PRN Reason: SALINE FLUSH Last Admin: 03/05/18 08:30 Dose: 10 ml Medical Necessity - Tobacco Use Smoking Status: Current every day smoker Tobacco Use: Cigarettes Assessment/Plan All Active Problems Abdominal pain (Acute) Partial small bowel obstruction (Acute) Hyperglycemia (Resolved) Hypokalemia (Resolved)
--- NOTE | 2018-03-05 11:35 | CASEMGMT ---
LORNE HERMAN Face to Face with patient for initial transition planning/care coordination assessment. LORNE HERMAN introduced self and role at [facility]. Patient sitting in chair, alert and oriented. Patient willing to participate in assessment and is able to answer all questions appropriately. Care providers, pharmacy, and demographics verified. Patient states that he lives with his in a 1 story apt. Patient states he has a glucometer at home. Patient states that he had a large BM and is going home now and wants to discharge AMA. RN VIRGIL encourage patient to talk with floor nurse regarding discharge. RN VIRGIL updated Jennifer PRADHAN regarding patient's wishes to discharge AMA.
--- NOTE | 2018-03-05 11:52 | NURSING ---
Pt had a large bowel movement and was walking in hallways all dressed. He was stopped and notified that the doctor had not discharge him. Dr. Cory pham. Pt is adamant he has to leave now to get his brother at group home. He signed ama papers and left.
--- NOTE | 2018-03-05 12:40 | PCM.DC.SUM ---
Discharge Date and Diagnosis Date of Admission: 03/03/18 Date of Discharge: 03/05/18 - Primary Discharge Diagnosis Small bowel obstruction - Secondary Discharge Diagnosis Chronic Problems Chronic kidney disease (Chronic) Noncompliance with medication regimen (Chronic) HTN (hypertension) (Chronic) DM type 2 (diabetes mellitus, type 2) (Chronic) Tobacco dependence (Chronic) Hospital Course and Treatment Imaging Results: 0 Clinical Impression(s) from Imaging Studies Abdomen/Pelvis CT 03/03/18 15:53 IMPRESSION: Findings which may be consistent with partial small bowel obstruction at the level of the mid to distal ileum.. Contracted thick-walled gallbladder without calcified stones likely physiologic however if concern for gallbladder disease ultrasound recommended. Fluid within the right subphrenic space Other findings as above. Electronically Signed: Shimon Dumont MD at 16:39 EDT , Service support , KUB X-Ray 03/04/18 02:35 IMPRESSION: No acute findings in the abdomen. Degenerative changes of the hips especially the left Electronically Signed: Jean Angeles, at 4:45 EDT Tel , Service support , Abdomen CT 03/04/18 07:14 IMPRESSION: There is no bowel obstruction. Small bowel ileus is present, and there are scattered areas of wall thickening in the small bowel which are nonspecific and can be seen with an infectious or inflammatory process. This is most severe in the left lower quadrant. There is minimal ascites in the pelvis. There is no free air. There is no significant lymphadenopathy. Electronically Signed: Courtney Cohen MD at 10:33 EDT Tel Direct: [phone], Service support , Operations: None Summary of Care Provided: The patient is a 53 year old M admitted with abdominal pain initial imaging studies obtained came back consistent with partial small bowel obstruction. Patient was admitted to regular nursing floor where he was managed conservatively. Patient did regain return of bowel function started on clear liquids however he did sign out AGAINST MEDICAL ADVICE 2 days after his admission. Patient was instructed to present to the emergency department or follow-up with his primary care physician if his condition worsened. Home Medications: Medications to take at Discharge Insulin NPH Hum/Reg Insulin Hm [Novolin 70-30 100 Unit/ml Vial] 15 unit SQ BID 01/06/17 Multivitamin [Daily Multiple Vitamin] 1 each PO DAILY 01/06/17 Aspirin [Aspirin EC] 81 mg PO DAILY 03/03/18 Cetirizine HCl [Zyrtec] 10 mg PO DAILY PRN 03/03/18 Gabapentin [Neurontin] 100 mg PO DAILY PRN 03/03/18 Lisinopril [Zestril] 10 mg PO DAILY 03/03/18 Omeprazole [Omeprazole] 20 mg PO DAILY 03/03/18 Rosuvastatin Calcium [Crestor] 40 mg PO QHS 03/03/18 traZODone [Desyrel] 50 mg PO QHS 03/03/18 Primary Care Physician: Care Physician,No Primary [Primary Care Provider] - Disposition: Against Medical Advice Minutes spent on discharge:: 35 Medical Necessity - Tobacco Use Smoking Status: Current every day smoker Tobacco Use: Cigarettes Meaningful Use Info Meaningful Use Diagnoses (Choose all that apply): None applicable Code Visit Inpatient E&M: 90084 Disch Hosp
--- NOTE | 2018-03-05 12:45 | DS.PCM_ITS ---
Discharge Date and Diagnosis Date of Admission: 03/03/18 Date of Discharge: 03/05/18 - Primary Discharge Diagnosis Small bowel obstruction - Secondary Discharge Diagnosis Chronic Problems Chronic kidney disease (Chronic) Noncompliance with medication regimen (Chronic) HTN (hypertension) (Chronic) DM type 2 (diabetes mellitus, type 2) (Chronic) Tobacco dependence (Chronic) Hospital Course and Treatment Imaging Results: 0 Clinical Impression(s) from Imaging Studies Abdomen/Pelvis CT 03/03/18 15:53 IMPRESSION: Findings which may be consistent with partial small bowel obstruction at the level of the mid to distal ileum.. Contracted thick-walled gallbladder without calcified stones likely physiologic however if concern for gallbladder disease ultrasound recommended. Fluid within the right subphrenic space Other findings as above. Electronically Signed: Shimon Dumont MD at 16:39 EDT , Service support , KUB X-Ray 03/04/18 02:35 IMPRESSION: No acute findings in the abdomen. Degenerative changes of the hips especially the left Electronically Signed: Jean Angeles, at 4:45 EDT Tel , Service support , Abdomen CT 03/04/18 07:14 IMPRESSION: There is no bowel obstruction. Small bowel ileus is present, and there are scattered areas of wall thickening in the small bowel which are nonspecific and can be seen with an infectious or inflammatory process. This is most severe in the left lower quadrant. There is minimal ascites in the pelvis. There is no free air. There is no significant lymphadenopathy. Electronically Signed: Courtney Cohen MD at 10:33 EDT Tel Direct: [phone], Service support , Operations: None Summary of Care Provided: The patient is a 53 year old M admitted with abdominal pain initial imaging studies obtained came back consistent with partial small bowel obstruction. Patient was admitted to regular nursing floor where he was managed conservatively. Patient did regain return of bowel function started on clear liquids however he did sign out AGAINST MEDICAL ADVICE 2 days after his admission. Patient was instructed to present to the emergency department or follow-up with his primary care physician if his condition worsened. Home Medications: Medications to take at Discharge Insulin NPH Hum/Reg Insulin Hm [Novolin 70-30 100 Unit/ml Vial] 15 unit SQ BID 01/06/17 Multivitamin [Daily Multiple Vitamin] 1 each PO DAILY 01/06/17 Aspirin [Aspirin EC] 81 mg PO DAILY 03/03/18 Cetirizine HCl [Zyrtec] 10 mg PO DAILY PRN 03/03/18 Gabapentin [Neurontin] 100 mg PO DAILY PRN 03/03/18 Lisinopril [Zestril] 10 mg PO DAILY 03/03/18 Omeprazole [Omeprazole] 20 mg PO DAILY 03/03/18 Rosuvastatin Calcium [Crestor] 40 mg PO QHS 03/03/18 traZODone [Desyrel] 50 mg PO QHS 03/03/18 Primary Care Physician: Care Physician,No Primary [Primary Care Provider] - Disposition: Against Medical Advice Minutes spent on discharge:: 35 Medical Necessity - Tobacco Use Smoking Status: Current every day smoker Tobacco Use: Cigarettes Meaningful Use Info Meaningful Use Diagnoses (Choose all that apply): None applicable Code Visit Inpatient E&M: 43271 Disch Hosp
== END 2018-03-05 11:52 | disposition left against medical advice (07) | DRG 180 ==
LOC: ED 17:20 → MS3 17:43
PROVIDERS: Hospitalist; Admitting Provider Hospitalist; Emergency Provider Emergency Medicine; Visit Provider Internal Medicine
DX: K56.600 Partial intestinal obstruction, unspecified as to cause (principal); E86.0 Dehydration; N18.9 Chronic kidney disease, unspecified; N17.9 Acute kidney failure, unspecified; Z79.4 Long term (current) use of insulin; F17.210 Nicotine dependence, cigarettes, uncomplicated; Z91.14 Patient's other noncompliance with medication regimen; E11.22 Type 2 diabetes mellitus with diabetic chronic kidney disease; I12.9 Hypertensive chronic kidney disease with stage 1 through stage 4 chronic kidney disease, or unspecified chronic kidney disease
CPT/HCPCS: 36415; 74018; 74019; 74176; 80048; 80053; 82962; 83605; 83690; 85025; 99282; J7030; A4216; J2405

== ENCOUNTER 2018-03-24 19:50 | Emergency (ER) | payer MEDICAID, SELFPAY ==
[2018-03-24 19:51] VITALS: BP 133/101; PULSE 80; RESP 18; TEMP 36.9; O2SAT 98; BMI 27.1
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
[2018-03-24] MEDS: Morphine 4 MG/ML Syringe IV (20:38)
[2018-03-24] MEDS: Ondansetron 4 MG/2 ML Vial IV (20:39)
[2018-03-24 20:45] LABS: Absolute Lymphocyte Count 1.61 X10^3/ul (0.83-4.51); Absolute Neutrophil Count 3.1 X10^3/uL (2.0-7.7); Basophil# 0.02 X10^3/uL; Basophil% 0.4 % (0-1); Eosinophil# 0.08 X10^3/uL; Eosinophils% 1.6 % (0-5); Hematocrit 40.9 % (40-54); Hemoglobin 13.8 g/dl (13.0-16.5); Lymphocyte # 1.61 X10^3/ul (4.0); Lymphocyte % 31.9 % (19-41); Mean Corp Hgb Conc 33.7 g/gl (32-36); Mean Corpuscular Hgb 30.2 pg (27.0-32.0); Mean Corpuscular Volume 89.5 fL (80-94); Mean Platelet Vol. 10.1 fl (6.2-12.0); Monocyte# 0.26 X10^3/uL; Monocyte% 5.2 % (0-10); Neutrophil # 3.06 X10^3/uL (2.7-7.7); Neutrophil % 60.7 % (47-70); Platelet Count 203 K/mm3 (150-450); RBC Distribution Width CV 13.5 % (11.6-14.6); RBC Distribution Width SD 43.8 fl (35.1-43.9); Red Blood Count 4.57 M/mm3 (4.6-6.2)
[2018-03-24 20:53] LABS: POSITIVE COUNT NO; POSITIVE DIFFERENTIAL NO; POSITIVE MORPHOLOGY NO
[2018-03-24 20:59] LABS: Prothrombin Time (Protime)PT. 13.3 SECONDS (11.7-14.9)
[2018-03-24 21:02] LABS: ALB/GLOB Ratio 0.9 RATIO (0.9-2.4); AST(SGOT) 76 U/L (15-37); Alanine Aminotransfer ALT/SGPT 62 U/L (16-61); Albumin, Serum 3.6 g/dL (3.2-5.0); Alkaline Phosphatase 77 U/L (45-117); Anion Gap 8 (5-15); BUN 11 mg/dL (7-18); BUN/Creat Ratio 8.1 RATIO (10-20); Calcium,Total 9.3 mg/dL (8.5-10.1); Chloride 102 mmol/L (98-107); Creatinine, Serum 1.35 mg/dL (0.70-1.30); EST Glomerular Filtration Rate 58 mL/min (>60); Est Glom Filt Rate - Afr Amer 71 mL/min (>60); Estimated Creatinine Clearance 67.86 ml/min; Globulin 4.1 g/dL (2.2-4.2); Glucose 144 mg/dL (74-106); Potassium 4.1 mmol/L (3.5-5.1); Protein, Total 7.7 g/dL (6.4-8.2); Sodium Level 138 mmol/L (136-145)
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
[2018-03-24 21:59] VITALS: BP 167/123; PULSE 74; RESP 20; O2SAT 97
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
[2018-03-24 23:01] VITALS: BP 151/99; PULSE 67; RESP 18; TEMP 36.1
--- NOTE | 2018-03-24 23:12 | ED.RN ---
PT REQUESTING TO SPEAK WITH DR. DR FREITAS NOTIFIED
== END 2018-03-24 23:31 | disposition home or self-care (01) ==
LOC: ED 21:29
PROVIDERS: Emergency Provider Emergency Medicine
DX: T14.8XXA Other injury of unspecified body region, initial encounter (principal); S40.211A Abrasion of right shoulder, initial encounter; S20.311A Abrasion of right front wall of thorax, initial encounter; S80.212A Abrasion, left knee, initial encounter; S80.211A Abrasion, right knee, initial encounter; S00.81XA Abrasion of other part of head, initial encounter; S60.811A Abrasion of right wrist, initial encounter; V23.4XXA Motorcycle driver injured in collision with car, pick-up truck or van in traffic accident, initial encounter; Y93.55 Activity, bike riding; Y92.410 Unspecified street and highway as the place of occurrence of the external cause; I10 Essential (primary) hypertension; E78.00 Pure hypercholesterolemia, unspecified; E11.9 Type 2 diabetes mellitus without complications; K21.9 Gastro-esophageal reflux disease without esophagitis; Z79.82 Long term (current) use of aspirin; Z79.4 Long term (current) use of insulin; Z79.899 Other long term (current) drug therapy; Z72.0 Tobacco use
CPT/HCPCS: 70450; 71260; 72125; 73030; 73502; 73564; 73610; 74177; 80053; 80320; 85025; 85610; 96374; 96375; 99285; Q9967; G0480; J2405

== ENCOUNTER 2018-04-21 03:56 | Emergency (ER) | payer MEDICAID, SELFPAY ==
[2018-04-21 03:59] VITALS: BP 114/85; PULSE 101; RESP 18; TEMP 36.8; O2SAT 96; BMI 26.9
[2018-04-21] MEDS: traMADol 50 MG Tablet PO (04:54)
[2018-04-21] MEDS: Ibuprofen 600 MG Tablet PO (04:54)
[2018-04-21] MEDS: Cephalexin 500 MG Capsule PO (05:02)
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
[2018-04-21 05:47] VITALS: BP 118/88; PULSE 84; RESP 16; O2SAT 97
== END 2018-04-21 05:50 | disposition home or self-care (01) ==
PROVIDERS: Emergency Provider Emergency Medicine
DX: S80.211A Abrasion, right knee, initial encounter (principal); L02.415 Cutaneous abscess of right lower limb; B96.89 Other specified bacterial agents as the cause of diseases classified elsewhere; V09.20XA Pedestrian injured in traffic accident involving unspecified motor vehicles, initial encounter; Y93.55 Activity, bike riding; Y92.9 Unspecified place or not applicable; I12.9 Hypertensive chronic kidney disease with stage 1 through stage 4 chronic kidney disease, or unspecified chronic kidney disease; E11.22 Type 2 diabetes mellitus with diabetic chronic kidney disease; N18.9 Chronic kidney disease, unspecified; Z79.4 Long term (current) use of insulin; Z79.82 Long term (current) use of aspirin; Z79.899 Other long term (current) drug therapy
CPT/HCPCS: 10060; 99283

== ENCOUNTER 2018-11-29 20:40 | Emergency (ER) | payer MEDICAID, SELFPAY ==
[2018-11-29 20:41] VITALS: BP 142/99; PULSE 82; RESP 16; TEMP 36.8; O2SAT 99; BMI 26.4
[2018-11-29] MEDS: Morphine 4 MG/ML Syringe IV (21:15)
[2018-11-29] MEDS: 0.9% Normal Saline 1,000 ML 1000 ML IV (21:15)
[2018-11-29] MEDS: Ondansetron 4 MG/2 ML Vial IV (21:15)
[2018-11-29 21:18] LABS: Absolute Lymphocyte Count 2.03 X10^3/ul (0.83-4.51); Absolute Neutrophil Count 2.4 X10^3/uL (2.0-7.7); Basophil# 0.05 X10^3/uL; Eosinophil# 0.12 X10^3/uL; Eosinophils% 2.4 % (0-5); Hematocrit 42.5 % (40-54); Hemoglobin 14.6 g/dl (13.0-16.5); Lymphocyte # 2.03 X10^3/ul (4.0); Mean Corp Hgb Conc 34.4 g/gl (32-36); Mean Corpuscular Hgb 30.4 pg (27.0-32.0); Mean Corpuscular Volume 88.5 fL (80-94); Mean Platelet Vol. 10.2 fl (6.2-12.0); Monocyte# 0.33 X10^3/uL; Monocyte% 6.7 % (0-10); Neutrophil # 2.41 X10^3/uL (2.7-7.7); Neutrophil % 48.7 % (47-70); POSITIVE COUNT NO; POSITIVE DIFFERENTIAL NO; POSITIVE MORPHOLOGY NO; Platelet Count 210 K/mm3 (150-450); RBC Distribution Width SD 42.2 fl (35.1-43.9)
[2018-11-29 21:55] LABS: ALB/GLOB Ratio 0.9 RATIO (0.9-2.4); AST(SGOT) 15 U/L (15-37); Alanine Aminotransfer ALT/SGPT 26 U/L (16-61); Albumin, Serum 3.7 g/dL (3.2-5.0); Alkaline Phosphatase 109 U/L (45-117); Anion Gap 10 (5-15); BUN 14 mg/dL (7-18); BUN/Creat Ratio 10.5 RATIO (10-20); Calcium,Total 8.7 mg/dL (8.5-10.1); Chloride 105 mmol/L (98-107); Creatinine, Serum 1.33 mg/dL (0.70-1.30); EST Glomerular Filtration Rate 59 mL/min (>60); Est Glom Filt Rate - Afr Amer 72 mL/min (>60); Estimated Creatinine Clearance 68.88 ml/min; Glucose 285 mg/dL (74-106); Lipase 153 U/L (73-393); Potassium 3.8 mmol/L (3.5-5.1); Protein, Total 7.7 g/dL (6.4-8.2); Sodium Level 136 mmol/L (136-145)
--- NOTE | 2018-11-29 21:59 | ED.DCSUM_ITS ---
History of Present Illness Informant: Patient Onset: 12-04 Context: Gradual Onset Timing: Continuous Location: upper abd ventral hernia Current Severity: Moderate Maximum Severity: Moderate Worsened by: movement, vomiting Relieved by: nothing Associated Symptoms: n/v Narrative: Patient is brought here today by police for medical clearance. They state they went to arrest him for warrants that were out on him, and he told them that he needed to go to the hospital. Patient states he has been having constipation for 4 or 5 days. In the last couple days, he started having off and on upper abd pain, mostly at the area of his ventral hernia, which has been present for a long time and he is supposed to have an evaluation to get it repaired at some point. Today, he has been vomiting off and on. He is concerned he has another bowel obstruction which she has had in the past. He has had 2 prior abdominal surgeries, 1 of them was in [place] and the other one was here, for bowel obstructions. Prior similar symptoms: Yes - bowel obstruction <Pk Babb - Last Filed: 11/29/18 21:55> <Shimon Eduardo - Last Filed: 11/30/18 00:03> Chief Complaint: Constipation - Past Medical History (1) Partial small bowel obstruction Status: Chronic (2) Chronic kidney disease Status: Chronic (3) DM type 2 (diabetes mellitus, type 2) Status: Chronic (4) HTN (hypertension) Status: Chronic <Pk Babb - Last Filed: 11/29/18 21:55> Past Medical History Surgical History: appendectomy, - - Laparoscopic lysis of adhesions for small bowel obstruction. Appendectomy. previous unknown surgical intervention while incarcerated at [facility] for which he underwent a midline laparotomy incision Smoking Status: Current every day smoker - Family History Maternal Family History: Reports: No pertinent history Paternal Family History: Reports: Diabetes <Pk Babb - Last Filed: 11/29/18 21:55> <Shimon Eduardo - Last Filed: 11/30/18 00:03> - Allergies and Home Meds Allergies/Adverse Reactions: Allergies No Known Allergies Allergy (Verified 11/29/18 20:45) Primary Care Physician: Care Physician,No Primary [Primary Care Provider] - Review of Systems General: Denies: Chills, Fever, Sweats Eyes: Denies: Visual changes - bilaterally, Diplopia ENT: Denies: Rhinorrhea, Sore throat Cardiovascular: Denies: Chest pain, Palpitations Respiratory: Denies: Dyspnea, Cough, Dyspnea on exertion Gastrointestinal: Reports: Abdominal pain, Nausea, Vomiting, Constipation Genitourinary: Denies: Dysuria, Hematuria, Frequency Musculoskeletal: Denies: Back pain, Extremity Pain Skin: Denies: Rash, Wounds Neurological: Denies: Headache, Weakness, Numbness <Pk Babb - Last Filed: 11/29/18 21:55> Physical Exam Vital Signs/Narrative: Vital Signs Temp Pulse Resp BP Pulse Ox 11/29/18 20:41 98.3 F 82 16 142/99 H 99 Inital Vital Signs reviewed: Yes General: Well nourished, Well developed, No Acute Distress Head: Normocephalic, Atraumatic Eyes: Perrl, EOMI ENT: Moist mucous membranes, No rhinorrhea Neck: Supple, Nontender Cardiovascular: Regular rate, Regular rhythm, No murmurs Respiratory: No distress, CTA bilaterally, Chest nontender Abdomen: Soft, Nondistended, Normal bowel sounds, Tender - diffusely, worst at upper abd ventral hernia, which is not erythemetous, Guarding, Ventral hernia - while attempting to reduce, pt continues to guard, limiting eval. Negative for: Rebound tenderness Back: Nontender, Normal Inspection Extremities: Nontender, No edema Skin: Normal color, No rash Neurological: Alert, Oriented x3, Cranial nerves II-XII grossly intact, Normal Strength, Normal Sensation Psychological: Normal affect, Normal Mood <Pk Babb - Last Filed: 11/29/18 21:55> Vital Signs/Narrative: Vital Signs Temp Pulse Resp BP Pulse Ox 11/29/18 20:41 98.3 F 82 16 142/99 H 99 <Shimon Eduardo - Last Filed: 11/30/18 00:03> Diagnostic/Tx/Re-eval Laboratory Tests 11/29/18 11/29/18 Range/Units 21:05 21:05 WBC 5.0 (4.4-11.0) K/mm3 RBC 4.80 (4.6-6.2) M/mm3 Hgb 14.6 (13.0-16.5) g/dl Hct 42.5 (40-54) % MCV 88.5 (80-94) fL MCH 30.4 (27.0-32.0) pg MCHC 34.4 (32-36) g/gl RDW 13.0 (11.6-14.6) % RDW Differential 42.2 (35.1-43.9) fl Plt Count 210 (150-450) K/mm3 MPV 10.2 (6.2-12.0) fl Immature Gran % (Auto) 0.200 (0.0-0.9) % Neut % (Auto) 48.7 (47-70) % Lymph % (Auto) 41.0 (19-41) % Haakon % (Auto) 6.7 (0-10) % Eos % (Auto) 2.4 (0-5) % Baso % (Auto) 1.0 (0-1) % Absolute Neuts (auto) 2.4 (2.0-7.7) X10^3/uL Absolute Lymphs (auto) 2.03 (0.83-4.51) X10^3/ul Total Counted Not Reportable Sodium 136 (136-145) mmol/L Potassium 3.8 (3.5-5.1) mmol/L Chloride 105 (98-107) mmol/L Carbon Dioxide 21.0 (21.0-32.0) mmol/L Anion Gap 10 (5-15) BUN 14 (7-18) mg/dL Creatinine 1.33 H (0.70-1.30) mg/dL Estim Creat Clear Calc 68.88 ml/min Est GFR (MDRD) Af Amer 72 (>60) mL/min Est GFR (MDRD) Non-Af 59 L (>60) mL/min BUN/Creatinine Ratio 10.5 (10-20) RATIO Glucose 285 H (74-106) mg/dL Calcium 8.7 (8.5-10.1) mg/dL Total Bilirubin 0.30 (0.20-1.00) mg/dL AST 15 (15-37) U/L ALT 26 (16-61) U/L Alkaline Phosphatase 109 (45-117) U/L Total Protein 7.7 (6.4-8.2) g/dL Albumin 3.7 (3.2-5.0) g/dL Globulin 4.0 (2.2-4.2) g/dL Albumin/Globulin Ratio 0.9 (0.9-2.4) RATIO Lipase 153 (73-393) U/L - Medical Decision Making CT with oral and IV contrast ordered to eval for bowel obstruction, along with IV fluids, Zofran, morphine, and while awaiting scanning, patient is lying supine with an ice pack on his ventral hernia. Labs unremarkable. Pt clinically and hemodynamically stable. Will be checked out to night ED physician for CT results and disposition accordingly. Saw Dr. Doty in the past when here. <Pk Babb - Last Filed: 11/29/18 21:55> - Medical Decision Making Pt. turned to me by the prior physician Dr. Tavares Babb. CT the abdomen pelvis showed no acute abnormality. There is no bowel obstruction. Repeat exam at 00 2 AM patient is doing well will be discharged to go with police.. <Shimon Eduardo - Last Filed: 11/30/18 00:03> ED Disposition <Pk Babb - Last Filed: 11/29/18 21:55> <Shimon Eduardo - Last Filed: 11/30/18 00:03> - Plan for ED Patient: Referrals: Care Physician,No Primary [Primary Care Provider] -
[2018-11-29 22:34] LABS: Bacteria 0 SEEN /hpf (None Seen); Red Blood Cells-Urine 0 SEEN /hpf (0-5)
[2018-11-29 22:41] LABS: Color, Urine Yellow (Yellow); Glucose, Dipstick 1000 mg/dl (Normal); Ketone-Dipstick Negative (Negative); Leukocyte Esterase-Dipstick Negative /ul (Negative); Nitrite-Dipstick Negative (Negative); Occult Blood-Urine Negative /ul (Negative); Protein-Dipstick 15 mg/dl (Negative); Urine Bilirubin Dipstick Negative (Negative); Urine Clarity Sl. Cloudy (Clear); Urine Urobilinogen Normal (Normal)
[2018-11-29 22:46] LABS: Hyaline Cast 0-5 SEEN /lpf (0-5); Squamous Epithelial Cells - UA 0-5 SEEN /hpf (0-5)
[2018-11-29 22:50] LABS: White Blood Cells 0-5 SEEN /hpf (0-5)
[2018-11-29 22:52] LABS: Mucous, Urine 1+ /hpf (<or=2+)
--- NOTE | 2018-11-29 23:10 | CT_ITS ---
STUDY: CT ABDOMEN AND PELVIS WITH CONTRAST REASON FOR EXAM: Male, 53 years old. RADIATION DOSAGE (If Supplied By Facility): CTDIvol = ( 15.92 ) mGy, DLP = ( 914.90 ) mGycm TECHNIQUE: Transaxial images were obtained from the dome of the diaphragm to the symphysis pubis with oral contrast. 100ml IV/Oral Isovue 300 was administered. Sagittal and coronal images were reconstructed. Individualized dose optimization techniques were used for this CT. COMPARISON: March 24, 2018. FINDINGS: The visualized lung bases are unremarkable. The visualized portions of the heart are within normal limits. Normal liver. Normal gallbladder and extrahepatic biliary system. Normal spleen. Normal pancreas. Normal bilateral adrenal glands. Bilateral low-attenuation structures within the kidneys the largest on the right measures 2.9 cm and on the left 2 cm likely representing cysts. There are some subcentimeter low-attenuation structures within the kidneys which are too small to characterize by CT criteria however statistically likely represent cysts as well. Normal visualized stomach. Normal small intestine. Normal colon. There is non-visualization of the appendix. Normal abdominal aorta. Normal inferior vena cava. Nonspecific subcentimeter short axis mesenteric and retroperitoneal lymph nodes. Normal urinary bladder. The prostate is slightly prominent. Correlate with patient's PSA values and physical exam on a nonemergent basis would be recommended. There is a small umbilical hernia containing fat. Small fat-containing ventral abdominal wall hernia. There are diffuse degenerative changes of the visualized lumbar spine. Degenerative changes of the hips. CT/Abdomen/Pelvis WITH Contrast IMPRESSION: No CT evidence for diverticulitis. The appendix is not visualized correlate with patient's surgical history. Renal cysts. Other findings as discussed above. Electronically Signed: Evens Wu, at 23:54 EDT Tel , Service support ,
--- NOTE | 2018-11-30 00:04 | ED.DEP ---
ED Disposition - Plan for ED Patient: Disposition: Home or Assisted Living Instructions: ED Abdominal Pain Unkn Cause Referrals: Care Physician,No Primary [Primary Care Provider] - As Needed Fouzia Mojica [NON-STAFF] - As Needed Additional Instructions: Plenty of fluids and rest.
[2018-11-30 00:18] VITALS: RESP 16
== END 2018-11-30 00:19 | disposition home or self-care (01) ==
PROVIDERS: Emergency Provider Emergency Medicine
DX: K59.00 Constipation, unspecified (principal); K43.9 Ventral hernia without obstruction or gangrene; Z87.19 Personal history of other diseases of the digestive system; I12.9 Hypertensive chronic kidney disease with stage 1 through stage 4 chronic kidney disease, or unspecified chronic kidney disease; E11.22 Type 2 diabetes mellitus with diabetic chronic kidney disease; N18.9 Chronic kidney disease, unspecified; Z79.82 Long term (current) use of aspirin; Z79.4 Long term (current) use of insulin; Z79.899 Other long term (current) drug therapy
CPT/HCPCS: 74177; 80053; 81001; 83690; 85025; 96361; 96374; 96375; 99283; Q9967; A4216; J2405

== ENCOUNTER 2020-01-21 19:23 | Observation (INO) | payer MEDICAID, SELFPAY ==
[2020-01-21 19:24] VITALS: BP 175/101; PULSE 96; RESP 17; TEMP 36; O2SAT 98; BMI 25.0
--- NOTE | 2020-01-21 20:03 | CT_ITS ---
STUDY: CT BRAIN WITHOUT CONTRAST REASON FOR EXAM: Male, 54 years old. FALL, PT STATED and quot;WHEN I BLOW MY NOSE BLOOD COMES OUT OF MY EYE and quot; RADIATION DOSAGE (If Supplied By Facility): CTDIvol = ( 44.99 ) mGy, DLP = ( 1558.47 ) mGycm TECHNIQUE: Transaxial CT imaging of the brain was performed without administration of intravenous contrast material. Individualized dose optimization techniques were used for this CT. COMPARISON: 03/24/2018. FINDINGS: Coronal reconstructions remains suboptimal despite repeat. Left facial and periorbital soft tissue swelling. Normal calvarium. There is mild cerebral atrophy with widening of the extra-axial spaces and ventricular dilatation. There are areas of decreased attenuation within the white matter tracts of the supratentorial brain, consistent with microvascular disease changes. There is no intracranial hemorrhage. There are no findings of an acute ischemic infarction. Acute, nondisplaced fractures of the left zygomatic arch. Nondisplaced fractures of the anterior and posterior ashley of the left maxillary sinus. Left mandibular coronoid process fracture, age indeterminate. Left orbital floor fracture. No displaced fragment. Fluid/blood in the left maxillary sinus consistent with facial fractures. CT/Brain/Head without Contrast IMPRESSION: 1. No acute intracranial findings. 2. Left orbital floor, maxillary, and zygomatic arch fractures. CT facial bones with dedicated bone algorithm is recommended for further evaluation. 3. Left mandibular coronoid process fracture, age indeterminate. CT facial bones with dedicated bone algorithm is recommended. 4. Mild microvascular ischemic changes. Atrophy. Electronically Signed: Elba Menard MD at 21:16 EDT Tel , Service support ,
--- NOTE | 2020-01-21 20:04 | EKG12_ITS ---
Test Reason : PAIN Blood Pressure : / mmHG Vent. Rate : 070 BPM Atrial Rate : 070 BPM P-R Int : 134 ms QRS Dur : 094 ms QT Int : 412 ms P-R-T Axes : 078 038 066 degrees QTc Int : 444 ms Normal sinus rhythm Normal ECG Confirmed by CARL CHOW, ZACH ([id number]), electronic news gathering editor DONNELL DAVIS ([id number]) on 01/25/2020 2:36:14 PM Referred By: Vishnu Thomas Confirmed By:ZACH HENRY MD
[2020-01-21 20:10] LABS: Bedside Glucose > 500 mg/dL (70-110)
[2020-01-21] MEDS: 0.9% Normal Saline 1,000 ML 150 ML IV (20:11)
[2020-01-21 20:19] LABS: Hematocrit 42.2 % (40-54); Hemoglobin 14.6 g/dL (13.0-16.5); Mean Corp Hgb Conc 34.6 g/dL (32-36); Mean Corpuscular Hgb 30.9 pg (27.0-32.0); Mean Corpuscular Volume 89.2 fL (80-94); Mean Platelet Vol. 10.8 fl (6.2-12.0); Platelet Count 218 K/mm3 (150-450); RBC Distribution Width CV 12.2 % (11.6-14.6); RBC Distribution Width SD 39.9 fl (35.1-43.9); Red Blood Count 4.73 M/mm3 (4.6-6.2); White Blood Count 11.8 K/mm3 (4.4-11.0)
[2020-01-21 20:29] VITALS: BP 179/121
[2020-01-21 20:54] LABS: Alcohol, Blood (Medical)-Serum < 3.0 mg/dL
[2020-01-21 20:56] LABS: Anion Gap 8 (5-15); BUN 21 mg/dL (7-18); Calcium,Total 9.6 mg/dL (8.5-10.1); Chloride 99 mmol/L (98-107); Creatinine, Serum 1.62 mg/dL (0.70-1.30); EST Glomerular Filtration Rate 47 mL/min (>60); Est Glom Filt Rate - Afr Amer 57 mL/min (>60); Estimated Creatinine Clearance 55.88 ml/min; Glucose 606 mg/dL (74-106); Potassium 3.8 mmol/L (3.5-5.1); Sodium Level 132 mmol/L (136-145)
[2020-01-21] MEDS: Insulin Lispro 100 UNIT/ML INSULN.PEN 16 UNIT SC (21:14)
[2020-01-21] MEDS: Tetracaine 0.5% Ophthalmic Bottle 1 DRP LEFT EYE (21:16)
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
[2020-01-21] MEDS: Ondansetron 4 MG/2 ML Vial IV (22:08)
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
[2020-01-21] MEDS: Morphine 4 MG/ML Syringe IV (22:16)
[2020-01-21] MEDS: Cefazolin 1 GM/50 ML BAG IV (22:18)
[2020-01-21 22:23] VITALS: BP 169/98; PULSE 61; RESP 15; O2SAT 97
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
[2020-01-21 23:36] LABS: Bedside Glucose 349 mg/dL (70-110)
[2020-01-21 23:48] VITALS: BP 146/103; O2SAT 97
[2020-01-22] MEDS: oxyCODONE 5 MG Tablet PO (00:02)
[2020-01-22 00:55] VITALS: BMI 24.7; BMI 24.8
[2020-01-22 01:00] VITALS: BP 174/101; PULSE 81; RESP 18; TEMP 37.9; O2SAT 95
[2020-01-22] MEDS: 0.9% Normal Saline 1,000 ML 75 ML IV (01:16)
[2020-01-22] MEDS: oxyCODONE 5 MG Tablet 10 MG PO ×4 (02:02→22:01)
[2020-01-22 02:16] LABS: Bedside Glucose 288 mg/dL (70-110)
[2020-01-22] MEDS: Insulin Lispro 100 UNIT/ML INSULN.PEN SC ×4 (02:37→21:53)
[2020-01-22] MEDS: Insulin Human 75/25 Kwickpen 15 UNIT SC ×3 (02:38→21:52)
[2020-01-22 03:20] VITALS: BP 155/82; PULSE 83; RESP 18; TEMP 37.2; O2SAT 95
[2020-01-22] MEDS: Cefazolin 1 GM/50 ML BAG IV ×3 (06:04→21:55)
[2020-01-22 06:12] LABS: Absolute Lymphocyte Count 3.16 X10^3/uL (0.83-4.51); Absolute Neutrophil Count 6.9 X10^3/uL (2.0-7.7); Basophil# 0.05 X10^3/uL; Basophil% 0.5 % (0-1); Eosinophil# 0.04 X10^3/uL; Eosinophils% 0.4 % (0-5); Hematocrit 39.7 % (40-54); Hemoglobin 13.7 g/dL (13.0-16.5); Lymphocyte # 3.16 X10^3/ul (4.0); Lymphocyte % 28.6 % (19-41); Mean Corp Hgb Conc 34.5 g/dL (32-36); Mean Corpuscular Hgb 30.3 pg (27.0-32.0); Mean Corpuscular Volume 87.8 fL (80-94); Monocyte# 0.81 X10^3/uL; Monocyte% 7.3 % (0-10); NRBC Flagged by Analyzer 0 % (0-5); Neutrophil # 6.94 X10^3/uL (2.7-7.7); Neutrophil % 62.8 % (47-70); Platelet Count 216 K/mm3 (150-450); RBC Distribution Width CV 12.2 % (11.6-14.6); RBC Distribution Width SD 39.3 fl (35.1-43.9); Red Blood Count 4.52 M/mm3 (4.6-6.2)
[2020-01-22 06:26] LABS: Anion Gap 7 (5-15); BUN 16 mg/dL (7-18); BUN/Creat Ratio 12.6 RATIO (10-20); Chloride 104 mmol/L (98-107); Creatinine, Serum 1.27 mg/dL (0.70-1.30); EST Glomerular Filtration Rate 62 mL/min (>60); Est Glom Filt Rate - Afr Amer 75 mL/min (>60); Estimated Creatinine Clearance 71.29 ml/min; Glucose 167 mg/dL (74-106); Potassium 3.3 mmol/L (3.5-5.1); Sodium Level 136 mmol/L (136-145)
[2020-01-22 06:33] VITALS: O2SAT 94
[2020-01-22 06:46] LABS: Bedside Glucose 128 mg/dL (70-110)
[2020-01-22 09:20] VITALS: BP 173/100; PULSE 79; RESP 18; TEMP 37; O2SAT 95
[2020-01-22] MEDS: Pantoprazole Sodium 20 MG Tablet PO (10:20)
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
[2020-01-22] MEDS: 0.9% Saline Lock 10 ML Syringe IV ×2 (11:47→21:52)
[2020-01-22 12:01] LABS: Bedside Glucose 332 mg/dL (70-110)
[2020-01-22] MEDS: 0.9% Normal Saline 1,000 ML 100 ML IV ×2 (12:12→23:25)
[2020-01-22] MEDS: Lisinopril 10 MG Tablet PO (12:52)
[2020-01-22 15:20] VITALS: BP 133/75; PULSE 65; RESP 18; TEMP 36.6; O2SAT 99
[2020-01-22 16:31] LABS: Bedside Glucose 311 mg/dL (70-110)
[2020-01-22 21:47] VITALS: BP 148/91; PULSE 71; RESP 18; TEMP 37.5; O2SAT 97
[2020-01-22] MEDS: Atorvastatin Calcium 80 MG Tablet PO (22:01)
[2020-01-22 22:10] LABS: Bedside Glucose 436 mg/dL (70-110)
[2020-01-23 02:33] VITALS: BP 126/82; PULSE 65; RESP 18; TEMP 36.8; O2SAT 97
[2020-01-23] MEDS: oxyCODONE 5 MG Tablet 10 MG PO ×2 (02:35→06:30)
[2020-01-23] MEDS: Insulin Lispro 100 UNIT/ML INSULN.PEN SC ×2 (02:36→06:30)
[2020-01-23 02:45] LABS: Bedside Glucose 207 mg/dL (70-110)
[2020-01-23] MEDS: Cefazolin 1 GM/50 ML BAG IV (05:26)
[2020-01-23 06:32] VITALS: O2SAT 93
[2020-01-23 07:00] LABS: Bedside Glucose 242 mg/dL (70-110)
[2020-01-23 08:30] VITALS: BP 138/77; PULSE 67; RESP 16; TEMP 36.4; O2SAT 96
[2020-01-23 08:57] LABS: Anion Gap 6 (5-15); BUN 10 mg/dL (7-18); BUN/Creat Ratio 9.2 RATIO (10-20); Calcium,Total 8.4 mg/dL (8.5-10.1); Chloride 105 mmol/L (98-107); Creatinine, Serum 1.09 mg/dL (0.70-1.30); EST Glomerular Filtration Rate 74 mL/min (>60); Est Glom Filt Rate - Afr Amer 90 mL/min (>60); Estimated Creatinine Clearance 83.06 ml/min; Glucose 246 mg/dL (74-106); Sodium Level 136 mmol/L (136-145)
[2020-01-23] MEDS: Pantoprazole Sodium 20 MG Tablet PO (09:06)
[2020-01-23] MEDS: Lisinopril 10 MG Tablet PO (09:06)
[2020-01-23] MEDS: Insulin Human 75/25 Kwickpen 15 UNIT SC (09:07)
--- NOTE | 2020-01-23 11:22 | DCINST_ITS ---
- Discharge Diagnoses Current Active Problems: Current Active and Chronic Problems Facial bones, closed fracture (Acute) Hyperglycemia (Acute) Marijuana abuse (Chronic) You will use the following diet at home:: Calorie/Carbohydrate Controlled (specify 1200, 1400, etc) - 1800 calorie Your food should be the consistency of: Regular Your liquids should be the consistency of: Regular/Thin Discharge Activity: Return to Normal Activity Weight Bearing Status: Weight bearing as tolerated Call your doctor if you observe: Fever of 101 or Higher, Shortness of breath, Dizziness, Uncontrolled pain Allergies/Adverse Reactions: Allergies No Known Allergies Allergy (Verified 01/21/20 19:24) Medications to take at Discharge Insulin NPH Hum/Reg Insulin Hm [Novolin 70-30 100 Unit/ml Vial] 15 unit SQ BID 01/06/17 Aspirin [Aspirin EC] 81 mg PO DAILY 03/03/18 Cetirizine HCl [Zyrtec] 10 mg PO DAILY PRN 03/03/18 Gabapentin [Neurontin] 100 mg PO DAILY PRN 03/03/18 Lisinopril [Zestril] 10 mg PO DAILY 03/03/18 Omeprazole 20 mg PO DAILY 03/03/18 Rosuvastatin Calcium [Crestor] 40 mg PO QHS 03/03/18 Acetaminophen [Tylenol Tablet] 650 mg PO Q6H PRN PRN #30 tab 01/23/20 Oxycodone [Oxyir] 5 mg PO Q4H PRN PRN 3 Days #18 tablet 01/23/20 The following prescriptions were given: Oxycodone [Oxyir] 5 mg PO Q4H PRN PRN 3 Days #18 tablet PRN Reason: Pain Score 6-10/10 Transmission Status: Sent to [facility] Acetaminophen [Tylenol Tablet] 650 mg PO Q6H PRN PRN #30 tab PRN Reason: Pain Score 1-10/Temp > 100.7 F Transmission Status: Pending to [facility] Primary Care Physician: Care Physician,No Primary [Primary Care Provider] - Test Results: Test results from this visit will be discussed in further detail at your follow- up appointment, if applicable. Please Follow Up With: Ana Echevarria MD When: call office to set up a PCP appointment in 1 week Please Follow Up With: Nick Martinez DDS When: 1-2 weeks for facial fractures Please Follow Up With: Roberto Canseco MD When: 1-2 weeks for eye examination o/a of orbital fracture Proposed Discharge Date: 01/23/20
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
[2020-01-23 12:30] LABS: Bedside Glucose 93 mg/dL (70-110)
[2020-01-23 14:01] LABS: Bedside Glucose 288 mg/dL (70-110)
== END 2020-01-23 11:25 | disposition home or self-care (01) ==
LOC: ED 20:34 → PCU 01-22 00:57
PROVIDERS: Admitting Provider Hospitalist; Emergency Provider Emergency Medicine; Referring Provider Hospitalist; Visit Provider Student in an Organized Health Care Education/Training Program
DX: S02.32XA Fracture of orbital floor, left side, initial encounter for closed fracture (principal); S02.40FA Zygomatic fracture, left side, initial encounter for closed fracture; E11.65 Type 2 diabetes mellitus with hyperglycemia; S02.40DA Maxillary fracture, left side, initial encounter for closed fracture; S02.632A Fracture of coronoid process of left mandible, initial encounter for closed fracture; W03.XXXA Other fall on same level due to collision with another person, initial encounter; Y93.72 Activity, wrestling; Y92.9 Unspecified place or not applicable; Z79.4 Long term (current) use of insulin; Z79.899 Other long term (current) drug therapy; E11.22 Type 2 diabetes mellitus with diabetic chronic kidney disease; I12.9 Hypertensive chronic kidney disease with stage 1 through stage 4 chronic kidney disease, or unspecified chronic kidney disease; N18.9 Chronic kidney disease, unspecified; F17.210 Nicotine dependence, cigarettes, uncomplicated; Z91.14 Patient's other noncompliance with medication regimen; F12.10 Cannabis abuse, uncomplicated; Z79.82 Long term (current) use of aspirin; H11.32 Conjunctival hemorrhage, left eye; E87.1 Hypo-osmolality and hyponatremia
CPT/HCPCS: 36415; 70450; 70486; 72125; 80048; 80320; 82962; 83036; 84484; 85025; 85027; 93005; 96361; 96365; 96366; 96375; 97162; 97165; 99218; 99284; 99406; J7030; A4216; G0378; G0480; J2405

== ENCOUNTER 2020-03-16 01:40 | Emergency (ER) | payer MEDICAID, SELFPAY ==
[2020-01-22 00:55] VITALS: BMI 24.7
[2020-03-16 01:42] VITALS: BP 186/125; PULSE 65; RESP 16; TEMP 37.3; O2SAT 92; BMI 25.2
--- NOTE | 2020-03-16 01:45 | RAD_ITS ---
STUDY: X-RAY - UNILATERAL RIBS ( RIGHT ) REASON FOR EXAM: Male, 55 years old. Right-sided rib pain TECHNIQUE: For view(s) of the ribs. COMPARISON: None. FINDINGS: No acute rib fracture. No lytic or blastic lesion. No soft tissue metastatic. Visualized right lung is clear. Mild multilevel degenerative change of the spine.. RAD/Ribs Unil 2V No CXR IMPRESSION: Normal x-ray examination of the ribs. Electronically Signed: Brad Crawford MD at 2:58 EDT Tel , Service support ,
--- NOTE | 2020-03-16 01:45 | RAD_ITS ---
STUDY: X-RAY - FACIAL BONES REASON FOR STUDY: Male, 55 years old. Facial pain status post fall. TECHNIQUE: 4 view(s) of the facial bones. COMPARISON: None. FINDINGS: Normal bilateral frontozygomatic and zygomatic-temporal arches. Normal bilateral medial and inferior orbital ashley. Normal bilateral orbits. Normal visualized nasal bones. Normal anterior nasal spine. The remaining visualized osseous structures are normal. Normal visualized paranasal sinuses. RAD/Facial Bones min 3 Views IMPRESSION: Normal x-ray examination of the facial bones. Electronically Signed: Brad Crawford MD at 2:46 EDT Tel , Service support ,
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
[2020-03-16 01:56] LABS: Bedside Glucose 488 mg/dL (70-110)
[2020-03-16] MEDS: HYDROcodone Bitartrate/Apap 5/325 Tablet PO (01:59)
[2020-03-16] MEDS: 0.9% Normal Saline 1,000 ML 999 ML IV (01:59)
[2020-03-16] MEDS: Insulin Lispro 100 UNIT/ML INSULN.PEN 10 UNIT SC (02:00)
[2020-03-16 02:28] LABS: Anion Gap 9 (5-15); BUN 9 mg/dL (7-18); BUN/Creat Ratio 7.2 RATIO (10-20); Calcium,Total 8.8 mg/dL (8.5-10.1); Chloride 99 mmol/L (98-107); Creatinine, Serum 1.25 mg/dL (0.70-1.30); EST Glomerular Filtration Rate 63 mL/min (>60); Est Glom Filt Rate - Afr Amer 77 mL/min (>60); Estimated Creatinine Clearance 71.56 ml/min; Glucose 479 mg/dL (74-106); Potassium 3.7 mmol/L (3.5-5.1); Sodium Level 133 mmol/L (136-145)
[2020-03-16 02:56] LABS: Bedside Glucose 369 mg/dL (70-110)
[2020-03-16 03:17] VITALS: BP 138/88; PULSE 78; RESP 16; O2SAT 98
== END 2020-03-16 03:19 | disposition home or self-care (01) ==
LOC: ED 02:37
PROVIDERS: Emergency Provider Emergency Medicine
DX: S30.0XXA Contusion of lower back and pelvis, initial encounter (principal); E11.65 Type 2 diabetes mellitus with hyperglycemia; S00.83XA Contusion of other part of head, initial encounter; F17.200 Nicotine dependence, unspecified, uncomplicated; I12.9 Hypertensive chronic kidney disease with stage 1 through stage 4 chronic kidney disease, or unspecified chronic kidney disease; E11.22 Type 2 diabetes mellitus with diabetic chronic kidney disease; N18.9 Chronic kidney disease, unspecified; Z79.4 Long term (current) use of insulin; Z79.82 Long term (current) use of aspirin; W01.0XXA Fall on same level from slipping, tripping and stumbling without subsequent striking against object, initial encounter
CPT/HCPCS: 70150; 71100; 80048; 82962; 99284; J7030; A4216

== ENCOUNTER 2022-02-10 02:46 | Emergency (ER) | payer MEDICAID, SELFPAY ==
[2022-02-10 02:48] VITALS: BP 155/102; PULSE 81; RESP 17; TEMP 36.9; O2SAT 98; BMI 24.7
--- NOTE | 2022-02-10 02:55 | EDS_ITS ---
HPI HPI - GI History of Present Illness Chief Complaint: Abd Pain Informant: patient Abdominal Pain/Flank Pain Onset: Days Context: Gradual Onset Timing: Intermittent Quality: Aching Location: Epigastric Current Severity: Mild Maximum Severity: Mild Nausea/Vomiting/Emesis GI Symptom: Positive for Nausea and Vomiting Onset: Today and Days Severity: Mild Diarrhea/Melena/Hematochezia GI Symptom: Negative for Diarrhea, Melena and Hematochezia Associated Symptoms Associated Symptoms: Negative for Dysuria, Frequency and Hematuria Narrative Narrative: 57-year-old male history of diabetes, prior small bowel obstruction, hypertension and chronic kidney disease. Has a known abdominal ventral hernia. States the last 4 days since Friday has had intermittent abdominal pain with nausea vomiting. Has had bowel movements. Denies dysuria. Denies fever. Denies melena or hematemesis. Prior similar symptoms: Yes Recent Illness/Hospitalization: No PFSH PFSH Home Medications Novolin 70/30 U-100 Insulin 15 unit SQ BID 01/06/17 [History Last Taken 03/02/18] aspirin 81 mg PO DAILY 03/03/18 [History Last Taken 01/21/20 08:00 81 mg] cetirizine [Zyrtec] 10 mg PO DAILY PRN 03/03/18 [History Last Taken Unknown] gabapentin 100 mg PO DAILY PRN 03/03/18 [History Last Taken Unknown] lisinopril 10 mg PO DAILY 03/03/18 [History Last Taken 01/21/20 12:00 10 mg] omeprazole 20 mg PO DAILY 03/03/18 [History Last Taken 01/20/20 22:00 20 mg] Allergy/AdvReac Type Severity Reaction Status Date / Time No Known Allergies Allergy Verified 02/10/22 02:50 Social History Smoking Status: Current every day smoker tobacco type: cigarettes ROS ROS ED ROS Narrative Abdominal pain. Nausea and vomiting. Review of Systems ROS Unobtainable: Denies due to encephalopathy Constitutional Constitutional ED: Denies fever(s) ENT ENT ED: Denies ear pain Cardiovascular Cardiovascular: Denies chest pain Respiratory/Chest Respiratory/Chest: Denies cough or dyspnea Gastrointestinal Gastrointestinal: Reports abdominal pain, constipation, nausea and vomiting; Denies diarrhea or melena Genitourinary Genitourinary ED: Denies dysuria Musculoskeletal Musculoskeletal: Denies myalgias Integumentary Denies rash Neurologic Neurologic: Denies headache(s) Psychiatric Psychiatric: Denies depression Endocrine Endocrinology: Denies polyuria Hematologic/Lymphatic Hematologic/Lymphatic: Denies easy bruising Allergic/Immunologic Allergic/Immunologic ED: Denies urticaria EXAM Physical Exam Narrative Exam Narrative: 7-year-old male no acute distress vital signs are stable afebrile. H EENT exam unremarkable. Moist mucous membranes. Lungs clear to auscultation. Heart regular rhythm no murmur rate about 80. Abdomen soft mildly tender. Is a ventral hernia appears to spontaneously reduce. Is not specifically tender. He has no peritoneal signs. He has mild upper abdominal tenderness. No Domínguez sign or McBurney's point tenderness. No obvious obstruction. He is not tympanitic. He is not significantly distended. He does have bowel sounds. Moving all 4 extremities. Nontender. No edema. Neurologically is awake and alert. Const Vital Signs: 02/10/22 02:48 Temperature 98.4 F Temperature Source Temporal Pulse Rate 81 Respiratory Rate 17 Blood Pressure 155/102 H Blood Pressure Mean 119 Pulse Ox 98 Oxygen Delivery Method Room Air Positive well nourished and well developed; Negative for obese, cachectic, contractures or unkempt General Appearance ED: well developed and NAD; Negative for unkempt, cachectic, contractures or pallor Nutritional Appearance: Negative for cachectic or obese HEENT Reports moist mucous membranes; Denies TM's clear normocephalic and atraumatic; Negative for trauma or tenderness Tympanic Membrane ED: Negative for TM's clear Eyes PERRL and EOMs intact bilaterally General Eye ED: Negative for pale conjunctiva or scleral icterus Neck no lymphadenopathy, supple and no JVD General: Negative for tenderness Resp normal respiratory effort and clear to auscultation bilaterally Auscultation: Negative for rales, rhonchi or wheezes Cardio regular rate, regular rhythm, S1 normal heart sound, S2 normal heart sound and no murmurs GI non-distended and no masses; Negative for non-tender GI Narrative: Ventral hernia. Spontaneously reduces. Inspection: Negative for abdominal distention Auscultation: normoactive bowel sounds; Negative for hyperactive bowel sounds or hypoactive bowel sounds Palpation: soft and tender; Negative for guarding, rigid or rebound tenderness present Back/Spine no CVA tenderness General Back: Negative for CVA tenderness Cervical Spine: Negative for cervical spine tenderness Thoracic Spine / Upper Back: Negative for thoracic spinal tenderness Extremity full ROM General Extremety ED: Negative for edema or tenderness General Extremity: Negative for edema Neuro moves all extremities Sensorium / Orientation: alert, oriented to person, oriented to place and oriented to time; Negative for orientation impaired, confused, lethargic or stuporous Motor Exam: strength 5/5 throughout Psych mental status grossly normal and thought process normal Appearance: Negative for unkempt Skin no wounds General Skin Exam: Negative for jaundice or pallor Lesions: no lesions Rashes: no rashes MDM MDM MDM Narrative Medical decision making narrative: 57-year-old male with abdominal pain and hernia that spontaneously reduces. History of bowel obstructions. Screening labs will be obtained. CAT scan of his abdomen pelvis. And Zofran treated for nausea. All with IV fluids. Pain well at 4:20 AM and will be discharged to home. Lab Data Attestation: I reviewed the patient's lab results. Lab results narrative: CBC normal. White count of 6. H&H 14 and 40. Electrolytes show a gap of 5. Normal BUN and creatinine. Liver enzymes unremarkable. Glucose 137. Lipase normal at 99. CAT scan of the abdomen pelvis is unremarkable. Read by the radiologist and reviewed by me. Labs: Laboratory Results - last 24 hr 02/10/22 02/10/22 02:55 02:55 WBC 6.0 RBC 4.59 L Hgb 14.0 Hct 40.0 MCV 87.1 MCH 30.5 MCHC 35.0 RDW Std Deviation 41.1 RDW Coeff of Chuy 13.0 Plt Count 233 MPV 9.1 Immature Gran % (Auto) 0.300 Neut % (Auto) 46.1 L Lymph % (Auto) 43.9 H Greene % (Auto) 7.5 Eos % (Auto) 1.7 Baso % (Auto) 0.5 Absolute Neuts (auto) 2.8 Absolute Lymphs (auto) 2.64 Nucleated RBC % 0 Sodium 137 Potassium 3.7 Chloride 103 Carbon Dioxide 29.0 Anion Gap 5 BUN 13 Creatinine 0.93 Estim Creat Clear Calc 93.87 Est GFR (MDRD) Af Amer 107 Est GFR (MDRD) Non-Af 88 BUN/Creatinine Ratio 13.9 Glucose 137 H Calcium 9.2 Total Bilirubin 0.40 AST 23 ALT 30 Alkaline Phosphatase 92 Total Protein 7.6 Albumin 3.3 Globulin 4.3 H Albumin/Globulin Ratio 0.8 L Lipase 99 Radiography Diagnostic Testing: Clinical Impression(s) from Imaging Studies Abdomen/Pelvis CT 02/10/22 03:37 IMPRESSION: No acute findings in the abdomen or pelvis. Electronically Signed: Curtis Uribe MD at 4:05 EDT , Discharge Plan Triage Chief Complaint: Abd Pain ED Provider: Bryant Eduardo Dx/Rx/DC Orders Clinical Impression: Abdominal pain, History of ventral hernia, History of diabetes mellitus Instructions: Abdominal Pain Prescriptions: No Action Novolin 70/30 U-100 Insulin 100 UNIT/ML suspension 15 unit SQ BID RF: 0 lisinopril 10 MG tablet 10 mg PO DAILY RF: 0 aspirin 81 MG tablet,delayed release (DR/EC) 81 mg PO DAILY RF: 0 omeprazole 20 MG capsule,delayed release(DR/EC) 20 mg PO DAILY RF: 0 gabapentin 100 MG capsule 100 mg PO DAILY PRN (Reason: Pain) RF: 0 cetirizine [Zyrtec] 10 MG capsule 10 mg PO DAILY PRN (Reason: Allergies) RF: 0 Primary Care Provider: Care Physician,No Primary Referrals: Maurice Bazan MD [NON-STAFF] - 3-5 Days if not improving Care Physician,No Primary [Primary Care Provider] - Activity Restrictions/Additional Instructions: Follow-up with a physician not improving. Disposition Disposition: Home, Self Care
[2022-02-10] MEDS: 0.9% Normal Saline 1,000 ML 125 ML IV (03:00)
[2022-02-10] MEDS: Ondansetron 4 MG/2 ML Vial IV (03:01)
[2022-02-10 03:02] LABS: Absolute Lymphocyte Count 2.64 X10^3/uL (0.83-4.51); Absolute Neutrophil Count 2.8 X10^3/uL (2.0-7.7); Basophil# 0.03 X10^3/uL; Basophil% 0.5 % (0-1); Eosinophils% 1.7 % (0-5); Lymphocyte # 2.64 X10^3/ul (0.83-4.51); Lymphocyte % 43.9 % (19-41); Mean Corpuscular Hgb 30.5 pg (27.0-32.0); Mean Corpuscular Volume 87.1 fL (80-94); Mean Platelet Vol. 9.1 fl (6.2-12.0); Monocyte# 0.45 X10^3/uL; Monocyte% 7.5 % (0-10); NRBC Flagged by Analyzer 0 % (0-5); Neutrophil # 2.77 X10^3/uL (2.7-7.7); Neutrophil % 46.1 % (47-70); Platelet Count 233 K/mm3 (150-450); RBC Distribution Width SD 41.1 fl (35.1-43.9); Red Blood Count 4.59 M/mm3 (4.6-6.2)
[2022-02-10 03:17] LABS: ALB/GLOB Ratio 0.8 RATIO (0.9-2.4); AST(SGOT) 23 U/L (15-37); Alanine Aminotransfer ALT/SGPT 30 U/L (16-61); Albumin, Serum 3.3 g/dL (3.2-5.0); Alkaline Phosphatase 92 U/L (45-117); Anion Gap 5 (5-15); BUN 13 mg/dL (7-18); BUN/Creat Ratio 13.9 RATIO (10-20); Calcium,Total 9.2 mg/dL (8.5-10.1); Chloride 103 mmol/L (98-107); Creatinine, Serum 0.93 mg/dL (0.70-1.30); EST Glomerular Filtration Rate 88 mL/min (>60); Est Glom Filt Rate - Afr Amer 107 mL/min (>60); Estimated Creatinine Clearance 93.87 ml/min; Globulin 4.3 g/dL (2.2-4.2); Glucose 137 mg/dL (74-106); Lipase 99 U/L (73-393); Potassium 3.7 mmol/L (3.5-5.1); Protein, Total 7.6 g/dL (6.4-8.2); Sodium Level 137 mmol/L (136-145)
--- NOTE | 2022-02-10 03:37 | CT_ITS ---
EXAM: CT ABDOMEN AND PELVIS WITH INTRAVENOUS CONTRAST CLINICAL INDICATION: abd pain TECHNIQUE: Helically acquired images were obtained of the abdomen and pelvis with intravenous contrast. This CT exam was performed using one or more of the following dose reduction techniques: automated exposure control, adjustment of the mA and/or kV according to patient size, and/or use of iterative reconstruction technique. This report was created using [employer] report generation technology. CONTRAST: IV 100mL Isovue-370 COMPARISON: 11/29/2018 FINDINGS: LOWER THORAX: Unremarkable. Lung bases are clear. No cardiomegaly. No significant pericardial effusion. ABDOMEN: LIVER: Unremarkable. Homogeneous. No focal mass. GALLBLADDER AND BILE DUCTS: Unremarkable. No calcified gallstones. No gallbladder distention or wall edema. No intra- or extrahepatic biliary ductal dilation. PANCREAS: Unremarkable. No focal cystic or solid mass. SPLEEN: Unremarkable. Normal size without focal cystic or solid mass. ADRENALS: Unremarkable. No nodules. KIDNEYS AND URETERS: Simple renal cysts, no follow-up required. Normal renal size and position. No hydronephrosis. STOMACH AND BOWEL: Unremarkable. No stomach or bowel distention. No focal inflammatory change. PELVIS: APPENDIX: Prior appendectomy. BLADDER: Unremarkable. REPRODUCTIVE: Unremarkable as visualized. No mass. ABDOMEN and PELVIS: INTRAPERITONEAL SPACE: Unremarkable. No ascites or other fluid collection. No free air. BONES/JOINTS: Unremarkable. No suspicious lytic or blastic abnormality. SOFT TISSUES: Unremarkable. No discrete abdominal or pelvic wall hernia. VASCULATURE: Unremarkable. Abdominal aorta is non-dilated. LYMPH NODES: Unremarkable. No enlarged lymph nodes. CT/Abdomen/Pelvis W IV Cont ONLY IMPRESSION: No acute findings in the abdomen or pelvis. Electronically Signed: Curtis Uribe MD at 4:05 EDT ,
== END 2022-02-10 04:29 | disposition home or self-care (01) ==
PROVIDERS: Emergency Provider Emergency Medicine; Visit Provider Emergency Medicine
DX: R10.13 Epigastric pain (principal); E11.22 Type 2 diabetes mellitus with diabetic chronic kidney disease; Z79.4 Long term (current) use of insulin; I12.9 Hypertensive chronic kidney disease with stage 1 through stage 4 chronic kidney disease, or unspecified chronic kidney disease; N18.9 Chronic kidney disease, unspecified; Z79.82 Long term (current) use of aspirin; F17.210 Nicotine dependence, cigarettes, uncomplicated; Z79.899 Other long term (current) drug therapy
CPT/HCPCS: 74177; 80053; 83690; 85025; 96374; 99283; J7030; Q9967; A4216; J2405

== ENCOUNTER 2023-01-24 12:32 | Inpatient (IN) | payer MEDICAID, SELFPAY ==
[2023-01-24 12:33] VITALS: BP 164/96; PULSE 102; RESP 14; TEMP 36.3; O2SAT 99; BMI 24.5
--- NOTE | 2023-01-24 12:50 | CT_ITS ---
EXAM: CT TEMPORAL BONES WITH INTRAVENOUS CONTRAST CLINICAL INDICATION: pain, cellulits SWELLING TO RT EYE TECHNIQUE: Routine CT protocol was performed of the internal auditory canals and temporal bones with intravenous contrast. 2-D reformats were performed by the technologist. This CT exam was performed using one or more of the following dose reduction techniques: automated exposure control, adjustment of the mA and/or kV according to patient size, and/or use of iterative reconstruction technique. CONTRAST: IV 100mL Isovue-300 RADIATION DOSE: CTDIvol = 29.38 mGy, DLP = 1153.68 mGy-cm COMPARISON: No relevant prior studies available. FINDINGS: RIGHT OSSICLES AND MIDDLE EAR: Unremarkable. Well aerated. Ossicles and scutum intact. RIGHT COCHLEA: Unremarkable. RIGHT VESTIBULE: Unremarkable. RIGHT SEMICIRCULAR CANALS: Unremarkable. RIGHT INTERNAL AUDITORY CANAL: Unremarkable. No osseous erosion or widening of the canal. RIGHT EXTERNAL AUDITORY CANAL: Clear. RIGHT MASTOID AIR CELLS: Unremarkable. Well aerated. LEFT OSSICLES AND MIDDLE EAR: Unremarkable. Well aerated. Ossicles and scutum intact. LEFT COCHLEA: Unremarkable. LEFT VESTIBULE: Unremarkable. LEFT SEMICIRCULAR CANALS: Unremarkable. LEFT INTERNAL AUDITORY CANAL: Unremarkable. No osseous erosion or widening of the canal. LEFT EXTERNAL AUDITORY CANAL: Clear. LEFT MASTOID AIR CELLS: Unremarkable. Well aerated. BONES/JOINTS: There is no evidence of fracture or bone destruction. SOFT TISSUES: There is right periorbital soft tissue swelling with no sign of abscess or postseptal, intraorbital involvement. Periportal right preseptal enhancement. ORBITS: Right proptosis. DENTAL: Absent teeth of the maxilla. Dental caries of the mandible. BRAIN AND EXTRA-AXIAL SPACES: Unremarkable as visualized. Cerebello-pontine angles are unremarkable. CT/Orb Sella Post Fossa Ear W/CON IMPRESSION: Preseptal orbital cellulitis. Electronically Signed: Curtis Naylor MD at 15:04 EDT ,
--- NOTE | 2023-01-24 12:50 | EKG12_ITS ---
Test Reason : EYE INFECTION Blood Pressure : / mmHG Vent. Rate : 066 BPM Atrial Rate : 066 BPM P-R Int : 134 ms QRS Dur : 090 ms QT Int : 428 ms P-R-T Axes : 086 -23 066 degrees QTc Int : 448 ms Normal sinus rhythm T wave abnormality, consider anterolateral ischemia Abnormal ECG Confirmed by CARL CHOW, ZACH ([id number]), communications editor MERRY PIÑA ([id number]) on 01/28/2023 10:10:00 AM Referred By: Confirmed By:ZACH HENRY MD
--- NOTE | 2023-01-24 13:03 | EDS_ITS ---
HPI History of Present Illness Chief Complaint: Cellulitis Narrative Narrative: 57-year-old male presents with his because of discharge from his eyes that he has had for 6 months. There was a time when he was incarcerated and he was recently released. He has past medical history of diabetes, hypertension, and chronic kidney disease. He was seen at the [facility] today and sent in for evaluation. He states that he is having problems with his vision and discharge from his eyes that is green and goopy according to his . This is been ongoing for months at a time. His right eye is worse than the left. He reports photophobia and pain in his bilateral eyes. He and his states that when they were seen today, they were sent to the emergency department with concern for sepsis from cellulitis of his bilateral orbits. PFSH PFSH Home Medications insulin human U-100 NPH-regulr 70-30 mix 100 unit/mL subcutaneous susp (Novolin 70/30 U-100 Insulin) 15 unit SQ BID diabetes 01/06/17 [History Last Taken 03/02/18] aspirin 81 mg tablet,delayed release 81 mg PO DAILY health maintenance 03/03/18 [History Last Taken 01/21/20 08:00 81 mg] cetirizine 10 mg capsule (Zyrtec) 10 mg PO DAILY PRN Allergies 03/03/18 [History Last Taken Unknown] gabapentin 100 mg capsule 100 mg PO DAILY PRN Pain 03/03/18 [History Last Taken Unknown] lisinopril 10 mg tablet 10 mg PO DAILY blood pressure 03/03/18 [History Last Taken 01/21/20 12:00 10 mg] omeprazole 20 mg capsule,delayed release 20 mg PO DAILY gerd 03/03/18 [History Last Taken 01/20/20 22:00 20 mg] Allergy/AdvReac Type Severity Reaction Status Date / Time No Known Allergies Allergy Verified 01/24/23 12:35 Social History Smoking Status: Current every day smoker tobacco type: cigarettes ROS ROS ED ROS Narrative Constitutional: No fever, no chills. HEENT: No sore throat. No neck pain. No loss of vision, but extremely blurry vision. Bilateral eye discharge. Started 6 months ago with left eye discharge, but this has reportedly improved. Bilateral eye pain. Cardiovascular: No chest pain. No palpitations. No pedal edema. Respiratory: No cough, no shortness of breath. Abdominal: No abdominal pain. No nausea. No vomiting. Genitourinary: No dysuria. No hematuria. Musculoskeletal: No myalgias. No arthralgias. Neurologic: No headaches. No dizziness. No lightheadedness. Skin: No rash. No change in color. Psychiatric: No depression. No anxiety. EXAM Physical Exam Narrative Exam Narrative: Afebrile. Vital signs noted. HEENT: Normocephalic. Atraumatic. PERRL, EOMI. Neck soft and supple. No point tenderness or step off. Positive conjunctival injection right greater than left with noted exudate. Positive bilateral eyelid swelling right greater than left. Cardiovascular: Regular rate and rhythm with intermittent tachycardia. No murmurs, rubs, or gallops appreciated. Respiratory: No tachypnea. Lungs clear to auscultation bilaterally. Gastrointestinal: Abdomen soft, nontender, with normoactive bowel sounds. No rebound or guarding. Neurological: Awake. Alert. Nonfocal, nonlateralizing. Skin: No rash. Normal color. No pallor. Musculoskeletal: No pedal edema. Full range of motion extremities. Const Vital Signs: 01/24/23 12:33 Temperature 97.3 F L Temperature Source Temporal Pulse Rate 102 H Respiratory Rate 14 Blood Pressure 164/96 H Blood Pressure Mean 118 Pulse Ox 99 Oxygen Delivery Method Room Air MDM MDM MDM Narrative Medical decision making narrative: Sepsis work-up will be pursued as the patient is tachycardic. I do feel that the source of any infection would be from his bilateral eye conjunctivitis. Concern is for orbital cellulitis as he is having pain with extraocular movement. Discharge Plan Triage Chief Complaint: Cellulitis ED Provider: Khoi Dillon Dx/Rx/DC Orders Prescriptions: No Action Novolin 70/30 U-100 Insulin 100 UNIT/ML suspension 15 unit SQ BID lisinopril 10 MG tablet 10 mg PO DAILY Label Comments: TAKE 1 TABLET BY MOUTH EVERY DAY aspirin 81 MG tablet,delayed release (DR/EC) 81 mg PO DAILY Label Comments: TAKE 1 TABLET BY MOUTH EVERY DAY omeprazole 20 MG capsule,delayed release(DR/EC) 20 mg PO DAILY Label Comments: Take 1 capsule by mouth Daily gabapentin 100 MG capsule 100 mg PO DAILY PRN (Reason: Pain) cetirizine [Zyrtec] 10 MG capsule 10 mg PO DAILY PRN (Reason: Allergies) Primary Care Provider: Dianne Hunt Referrals: Dianne Hunt, PA [Primary Care Provider] -
--- NOTE | 2023-01-24 13:03 | EX.ED.DYSGE1 ---
HPI History of Present Illness Chief Complaint: Cellulitis Narrative Narrative: 57-year-old male presents with his because of discharge from his eyes that he has had for 6 months. There was a time when he was incarcerated and he was recently released. He has past medical history of diabetes, hypertension, and chronic kidney disease. He was seen at the [facility] today and sent in for evaluation. He states that he is having problems with his vision and discharge from his eyes that is green and goopy according to his . This is been ongoing for months at a time. His right eye is worse than the left. He reports photophobia and pain in his bilateral eyes. He and his states that when they were seen today, they were sent to the emergency department with concern for sepsis from cellulitis of his bilateral orbits. [facility] Medical History Diabetes mellitus HTN (hypertension) Home Medications insulin human U-100 NPH-regulr 70-30 mix 100 unit/mL subcutaneous susp (Novolin 70/30 U-100 Insulin) 15 unit SQ BID diabetes 01/06/17 [History Last Taken 03/02/18] aspirin 81 mg tablet,delayed release 81 mg PO DAILY health maintenance 03/03/18 [History Last Taken 01/21/20 08:00 81 mg] cetirizine 10 mg capsule (Zyrtec) 10 mg PO DAILY PRN Allergies 03/03/18 [History Last Taken Unknown] gabapentin 100 mg capsule 100 mg PO DAILY PRN Pain 03/03/18 [History Last Taken Unknown] lisinopril 10 mg tablet 10 mg PO DAILY blood pressure 03/03/18 [History Last Taken 01/21/20 12:00 10 mg] omeprazole 20 mg capsule,delayed release 20 mg PO DAILY gerd 03/03/18 [History Last Taken 01/20/20 22:00 20 mg] Allergy/AdvReac Type Severity Reaction Status Date / Time No Known Allergies Allergy Verified 01/24/23 12:35 Social History (Updated 01/24/23 @ 16:[address] Meg Worthington DO) Smoking Status: Current every day smoker tobacco type: cigarettes alcohol intake: current alcohol intake frequency: 0-2 drinks per day Alcohol type: beer substance use type: marijuana ROS ROS ED ROS Narrative Constitutional: No fever, no chills. HEENT: No sore throat. No neck pain. No loss of vision, but extremely blurry vision. Bilateral eye discharge. Started 6 months ago with left eye discharge, but this has reportedly improved. Bilateral eye pain. Cardiovascular: No chest pain. No palpitations. No pedal edema. Respiratory: No cough, no shortness of breath. Abdominal: No abdominal pain. No nausea. No vomiting. Genitourinary: No dysuria. No hematuria. Musculoskeletal: No myalgias. No arthralgias. Neurologic: No headaches. No dizziness. No lightheadedness. Skin: No rash. No change in color. Psychiatric: No depression. No anxiety. EXAM Physical Exam Narrative Exam Narrative: Afebrile. Vital signs noted. HEENT: Normocephalic. Atraumatic. PERRL, EOMI. Neck soft and supple. No point tenderness or step off. Positive conjunctival injection right greater than left with noted exudate. Positive bilateral eyelid swelling right greater than left. Cardiovascular: Regular rate and rhythm with intermittent tachycardia. No murmurs, rubs, or gallops appreciated. Respiratory: No tachypnea. Lungs clear to auscultation bilaterally. Gastrointestinal: Abdomen soft, nontender, with normoactive bowel sounds. No rebound or guarding. Neurological: Awake. Alert. Nonfocal, nonlateralizing. Skin: No rash. Normal color. No pallor. Musculoskeletal: No pedal edema. Full range of motion extremities. Const Vital Signs: 01/24/23 12:33 01/24/23 12:50 Temperature 97.3 F L Temperature Source Temporal Pulse Rate 102 H Respiratory Rate 14 Blood Pressure 164/96 H Blood Pressure Mean 118 Pulse Ox 99 Oxygen Delivery Method Room Air Room Air MDM MDM MDM Narrative Medical decision making narrative: Sepsis work-up will be pursued as the patient is tachycardic. I do feel that the source of any infection would be from his bilateral eye conjunctivitis. Concern is for orbital cellulitis as he is having pain with extraocular movement. I reviewed the patient's laboratory work, he has a normal white count of 6.7, hemoglobin normal at 15.3, platelet count normal at 231. Coagulation studies are negative with an INR of 0.9 and a PTT of 27. CMP was reviewed and he has a normal BUN of 15, creatinine 1.29, glucose is elevated at 269 consistent with his diabetes. He has a normal anion gap of 7 so I do not feel he is in a diabetic ketoacidosis. Lactic acid slightly elevated at 2.0. However, I do not feel that he is meeting any other SIRS criteria except for the tachycardia, he does not have a white count. I do not feel that he meets full sepsis criteria either. He was given a bolus of IV fluids. He was given morphine for analgesia. I reviewed the CT imaging individually, then reviewed the radiology report which was read as right preseptal cellulitis, but no evidence of orbital cellulitis or abscess. Given that the patient is diabetic, is having a large amount of pain and discharge from the right eye, he was started on vancomycin and Zosyn. I discussed the patient with Dr. Douglass with ophthalmology who agrees that eyedrops do not need to be given just IV antibiotics. I then discussed patient with Dr. Tatyana Worthington for admission. Patient is in stable condition. History & Record Review Discussion w/independent historian: Patient and Significant other Additional record(s) reviewed:: Prior ED visit Lab Data Attestation: I reviewed the patient's lab results. Labs: Laboratory Results - last 24 hr 01/24/23 01/24/23 01/24/23 13:10 13:10 13:10 WBC 6.7 RBC 5.10 Hgb 15.3 Hct 44.9 MCV 88.0 MCH 30.0 MCHC 34.1 RDW Std Deviation 44.2 H RDW Coeff of Chuy 13.6 Plt Count 231 MPV 10.1 Immature Gran % (Auto) 0.300 Neut % (Auto) 63.7 Lymph % (Auto) 25.3 Dickey % (Auto) 8.2 Eos % (Auto) 1.8 Baso % (Auto) 0.7 Absolute Neuts (auto) 4.3 Absolute Lymphs (auto) 1.69 Nucleated RBC % 0 PT 12.5 INR 0.9 APTT 27.0 Sodium 138 Potassium 4.0 Chloride 101 Carbon Dioxide 30.0 Anion Gap 7 BUN 15 Creatinine 1.29 Estim Creat Clear Calc 67.67 Est GFR (MDRD) Af Amer 73 Est GFR (MDRD) Non-Af 60 BUN/Creatinine Ratio 11.6 Glucose 269 H Lactic Acid Calcium 9.1 Total Bilirubin 0.40 AST 20 ALT 24 Alkaline Phosphatase 135 H Total Protein 7.7 Albumin 3.3 Globulin 4.4 H Albumin/Globulin Ratio 0.8 L Urine Color Urine Clarity Urine pH Ur Specific [place] Urine Protein Urine Glucose (UA) Urine Ketones Urine Occult Blood Urine Nitrite Urine Bilirubin Urine Urobilinogen Ur Leukocyte Esterase Urine RBC Urine WBC Ur Squamous Epith Cells Urine Bacteria Urine Mucus 01/24/23 01/24/23 13:10 14:33 WBC RBC Hgb Hct MCV MCH MCHC RDW Std Deviation RDW Coeff of Chuy Plt Count MPV Immature Gran % (Auto) Neut % (Auto) Lymph % (Auto) Dickey % (Auto) Eos % (Auto) Baso % (Auto) Absolute Neuts (auto) Absolute Lymphs (auto) Nucleated RBC % PT INR APTT Sodium Potassium Chloride Carbon Dioxide Anion Gap BUN Creatinine Estim Creat Clear Calc Est GFR (MDRD) Af Amer Est GFR (MDRD) Non-Af BUN/Creatinine Ratio Glucose Lactic Acid 2.0 Calcium Total Bilirubin AST ALT Alkaline Phosphatase Total Protein Albumin Globulin Albumin/Globulin Ratio Urine Color Straw Urine Clarity Clear Urine pH 6.5 Ur Specific [place] 1.010 Urine Protein Negative Urine Glucose (UA) 1000 H Urine Ketones Negative Urine Occult Blood Negative Urine Nitrite Negative Urine Bilirubin Negative Urine Urobilinogen Normal Ur Leukocyte Esterase Negative Urine RBC 0 SEEN Urine WBC 0 SEEN Ur Squamous Epith Cells 0 SEEN Urine Bacteria 0 SEEN Urine Mucus 0 SEEN Radiography Diagnostic Testing: Clinical Impression(s) from Imaging Studies CT Orbit Sella Inner 01/24/23 12:50 IMPRESSION: Preseptal orbital cellulitis. Electronically Signed: Curtis Naylor MD at 15:04 EDT Reading Location ID and State: [facility] / [place] , Service support , Management Discussion w/another healthcare provider: Hospitalist (Dr. Worthington) and Pig Farmer (Dr. Douglass) Discharge Plan Triage Chief Complaint: Cellulitis ED Provider: Khoi Dillon Dx/Rx/DC Orders Clinical Impression: Preseptal cellulitis of right eye, Lactic acidosis Primary Care Provider: Dianne Hunt
[2023-01-24] MEDS: 0.9% Normal Saline 1,000 ML 999 ML IV (13:11)
[2023-01-24] MEDS: Morphine 4 MG/ML Syringe IV (13:12)
[2023-01-24 13:23] LABS: Absolute Lymphocyte Count 1.69 X10^3/uL (0.83-4.51); Absolute Neutrophil Count 4.3 X10^3/uL (2.0-7.7); Basophil# 0.05 X10^3/uL; Basophil% 0.7 % (0-1); Eosinophil# 0.12 X10^3/uL; Eosinophils% 1.8 % (0-5); Hematocrit 44.9 % (40-54); Hemoglobin 15.3 g/dL (13.0-16.5); Lymphocyte # 1.69 X10^3/ul (0.83-4.51); Lymphocyte % 25.3 % (19-41); Mean Corp Hgb Conc 34.1 g/dL (32-36); Mean Platelet Vol. 10.1 fl (6.2-12.0); Monocyte# 0.55 X10^3/uL; Monocyte% 8.2 % (0-10); NRBC Flagged by Analyzer 0 % (0-5); Neutrophil # 4.26 X10^3/uL (2.7-7.7); Neutrophil % 63.7 % (47-70); Platelet Count 231 K/mm3 (150-450); RBC Distribution Width CV 13.6 % (11.6-14.6); RBC Distribution Width SD 44.2 fl (35.1-43.9); White Blood Count 6.7 K/mm3 (4.4-11.0)
[2023-01-24 13:34] LABS: International Normalized Ratio 0.9; Prothrombin Time (Protime)PT. 12.5 SECONDS (11.7-14.9)
[2023-01-24 13:35] LABS: ALB/GLOB Ratio 0.8 RATIO (0.9-2.4); AST(SGOT) 20 U/L (15-37); Alanine Aminotransfer ALT/SGPT 24 U/L (16-61); Albumin, Serum 3.3 g/dL (3.2-5.0); Alkaline Phosphatase 135 U/L (45-117); Anion Gap 7 (5-15); BUN 15 mg/dL (7-18); BUN/Creat Ratio 11.6 RATIO (10-20); Calcium,Total 9.1 mg/dL (8.5-10.1); Chloride 101 mmol/L (98-107); Creatinine, Serum 1.29 mg/dL (0.70-1.30); EST Glomerular Filtration Rate 60 mL/min (>60); Est Glom Filt Rate - Afr Amer 73 mL/min (>60); Estimated Creatinine Clearance 67.67 ml/min; Globulin 4.4 g/dL (2.2-4.2); Glucose 269 mg/dL (74-106); Protein, Total 7.7 g/dL (6.4-8.2); Sodium Level 138 mmol/L (136-145)
[2023-01-24 14:39] LABS: Bacteria 0 SEEN /hpf (None Seen); Mucous, Urine 0 SEEN /hpf (<or=2+); Red Blood Cells-Urine 0 SEEN /hpf (0-5); Squamous Epithelial Cells - UA 0 SEEN /hpf (0-5); White Blood Cells 0 SEEN /hpf (0-5)
[2023-01-24 14:48] LABS: Color, Urine Straw (Yellow); Glucose, Dipstick 1000 mg/dl (Normal); Ketone-Dipstick Negative (Negative); Leukocyte Esterase-Dipstick Negative /ul (Negative); Nitrite-Dipstick Negative (Negative); Occult Blood-Urine Negative /ul (Negative); Protein-Dipstick Negative (Negative); Urine Bilirubin Dipstick Negative (Negative); Urine Clarity Clear (Clear); Urine Urobilinogen Normal (Normal); Urine pH 6.5 (5.0 - 8.0)
--- NOTE | 2023-01-24 15:36 | HP.PCM.HOS_ITS ---
HPI - General General Date of Admission: 01/24/23 Date of Service: 01/24/23 Chief Complaint: Right eye pain HPI Narrative KEYLA LOO, is a 57 M who presented to the emergency at [facility] on 01/24/2023 due to right eye pain and discharge. This started approximately 6 months ago while he was incarcerated and he was recently released in October. He states it started in his left eye and has subsequently gone to his right eye however both eyes are still painful. His right eye is more significantly a problem at this time. He reports that his right eye has been draining green discharge and that this has been going on for a few months. He has photophobia and pain in his bilateral eyes. He was seen somewhere today. The patient thought it was at the eye center however when the emergency department called them they had not seen him. We are unclear where he was seen however they recommended he be evaluated in the emergency department. He has no other associated symptoms that are of concern for systemic infection. He does admit to being a diabetic and has had his blood sugars under better control recently but has been uncontrolled previously. Per review of previous documentation there does seem to be some historical noncompliance issues. Vital signs on presentation showed temperature of 97.3, heart rate 102, blood pressure 164/96, pulse ox was 99% on room air with a respiratory rate of 14. CBC is unremarkable. There is no left shift. Coags are normal. His chemistry panel is unremarkable other than a glucose of 269. Liver function is normal. UA is unremarkable. A CT of his face was performed and is consistent with preseptal orbital cellulitis, right proptosis and no abscess presence. The case was discussed with the [facility] by the ER physician and they recommended initiating broad-spectrum IV antibiotics. I did discuss the case with them and they will be in to evaluate him later this evening. [facility]LY [facility], [facility] Medical History Diabetes mellitus HTN (hypertension) Home Medications insulin human U-100 NPH-regulr 70-30 mix 100 unit/mL subcutaneous susp (Novolin 70/30 U-100 Insulin) 15 unit SQ BID diabetes 01/06/17 [History Last Taken 03/02/18] aspirin 81 mg tablet,delayed release 81 mg PO DAILY health maintenance 03/03/18 [History Last Taken 01/21/20 08:00 81 mg] cetirizine 10 mg capsule (Zyrtec) 10 mg PO DAILY PRN Allergies 03/03/18 [History Last Taken Unknown] gabapentin 100 mg capsule 100 mg PO DAILY PRN Pain 03/03/18 [History Last Taken Unknown] lisinopril 10 mg tablet 10 mg PO DAILY blood pressure 03/03/18 [History Last Taken 01/21/20 12:00 10 mg] omeprazole 20 mg capsule,delayed release 20 mg PO DAILY gerd 03/03/18 [History Last Taken 01/20/20 22:00 20 mg] Allergy/AdvReac Type Severity Reaction Status Date / Time No Known Allergies Allergy Verified 01/24/23 12:35 no surgical history Social History (Updated 01/24/23 @ 16:[address] Meg Worthington, DO) Smoking Status: Current every day smoker tobacco type: cigarettes alcohol intake: current alcohol intake frequency: 0-2 drinks per day Alcohol type: beer substance use type: marijuana ROS Constitutional Constitutional: Denies anorexia, change in weight, chills, fatigue, fever(s), malaise, night sweats, weakness or other Eyes Eyes: Reports blurry vision, change in vision, discharge from eye(s), erythema, eye pain and loss of vision; Denies change in eye color, double vision or other ENT HEENT: Denies abnormal hearing, dysphagia, ear pain, epistaxis, headache(s), hearing loss, nasal congestion, nasal discharge, post nasal drip, sinus pressure, sore throat or other Cardiovascular Cardiovascular: Denies chest pain, claudication, dyspnea on exertion, edema, lightheadedness, orthopnea, palpitations, paroxysmal nocturnal dyspnea, rapid heart rate, syncope or other Respiratory/Chest Respiratory/Chest: Denies cough, dyspnea, excessive phlegm production, hemoptysis, productive cough, shortness of breath at rest, shortness of breath with exertion, wheezing or other Gastrointestinal Gastrointestinal: Denies abdominal pain, coffee ground emesis, constipation, diarrhea, dyspepsia, hematemesis, hematochezia, loose stools, melena, nausea, vomiting or other Genitourinary Genitourinary: Denies burning urination, difficulty urinating, dysuria, hematuria, nocturia, urinary frequency, urinary hesitancy, urinary incontinence, urinary urgency or other Musculoskeletal Musculoskeletal: Reports back pain, joint pain and joint stiffness; Denies arthralgias, joint swelling, myalgias, neck pain or other Neurologic Neurologic: Reports paresthesias RLE (Bilateral feet) and LLE (Bilateral feet) Psychiatric Psychiatric: Denies anxiety, depression, homicidal ideation, suicidal ideation or other Endocrine Endocrinology: Denies change in body appearance, cold intolerance, excessive sweating, heat intolerance, polydipsia, polyuria or other Hematologic/Lymphatic Hematologic/Lymphatic: Denies anemia, easy bleeding, easy bruising, lymphadenopathy or other Allergic/Immunologic Allergic/Immunologic: Denies rhinitis, hives, eczemia, asthma or other Vital Signs Vital Signs Vital Signs: 01/24/23 12:33 01/24/23 12:50 Temperature 97.3 F L Temperature Source Temporal Pulse Rate 102 H Respiratory Rate 14 Blood Pressure 164/96 H Blood Pressure Mean 118 Pulse Ox 99 Oxygen Delivery Method Room Air Room Air Weight Weight: 82.1 kg Body Mass Index (BMI) 24.5 Physical Exam Const alert, oriented x3 and no apparent distress Constitutional Narrative: Thin, -Ivorian male, lying in bed with towel over her eyes, appears comfortable at this time and nontoxic but uncomfortable when lights turned on due to photophobia General Appearance: cooperative HEENT normocephalic, head/scalp atraumatic, hearing grossly normal bilaterally and m oist oral mucous membranes HEENT Narrative: Patient is poor, Mallampati is 2, no thrush Eyes Negative for PERRL, EOMs intact bilaterally or conjunctivae normal Eyes Narrative: Both eyes are significantly injected right greater than left, eyelids bilaterally are swelling with right greater than left, significant photophobia and increased eye pain with palpation right greater than left, yellowish-green drainage from right eye Neck no lymphadenopathy and supple Neck Narrative: P midline, no thyroid enlarged Resp normal respiratory effort, no retractions, no use of accessory muscles and clear to auscultation bilaterally Resp Narrative: Diffusely diminished but clear Auscultation: Negative for rales, rhonchi or wheezes Cardio regular rate, S1 normal heart sound, S2 normal heart sound, no murmurs, no rub, no gallops and no clicks GI normal to inspection, nondistended, normoactive bowel sounds, soft to palpation and non-tender GI Narrative: Thin Extremity no clubbing, cyanosis or edema Extremity Narrative: Pedal pulses are 2+ Neuro oriented x3, moves all extremities and no focal motor deficits Speech: speech normal Motor Exam: strength 5/5 throughout Psych affect normal Psych Narrative: Pleasant, appropriately interactive, gracious for care Results Lab / Micro Data Result Diagrams: 01/24/23 13:10 01/24/23 13:10 Labs: Laboratory Results - last 24 hr 01/24/23 13:10: WBC 6.7, RBC 5.10, Hgb 15.3, Hct 44.9, MCV 88.0, MCH 30.0, MCHC 34.1, RDW Std Deviation 44.2 H, RDW Coeff of Chuy 13.6, Plt Count 231, MPV 10.1, Immature Gran % (Auto) 0.300, Neut % (Auto) 63.7, Lymph % (Auto) 25.3, [place] % (Auto) 8.2, Eos % (Auto) 1.8, Baso % (Auto) 0.7, Absolute Neuts (auto) 4.3, Absolute Lymphs (auto) 1.69, Nucleated RBC % 0 01/24/23 13:10: PT 12.5, INR 0.9, APTT 27.0 01/24/23 13:10: Sodium 138, Potassium 4.0, Chloride 101, Carbon Dioxide 30.0, Anion Gap 7, BUN 15, Creatinine 1.29, Estim Creat Clear Calc 67.67, Est GFR (MDRD) Af Amer 73, Est GFR (MDRD) Non-Af 60, BUN/Creatinine Ratio 11.6, Glucose 269 H, Calcium 9.1, Total Bilirubin 0.40, AST 20, ALT 24, Alkaline Phosphatase 135 H, Total Protein 7.7, Albumin 3.3, Globulin 4.4 H, Albumin/Globulin Ratio 0.8 L 01/24/23 13:10: Lactic Acid 2.0 01/24/23 14:33: Urine Color Straw, Urine Clarity Clear, Urine pH 6.5, Ur Specific [place] 1.010, Urine Protein Negative, Urine Glucose (UA) 1000 H, Urine Ketones Negative, Urine Occult Blood Negative, Urine Nitrite Negative, Urine Bilirubin Negative, Urine Urobilinogen Normal, Ur Leukocyte Esterase Negative, Urine RBC 0 SEEN, Urine WBC 0 SEEN, Ur Squamous Epith Cells 0 SEEN, Urine Bacteria 0 SEEN, Urine Mucus [address] Orbit Sella Inner 01/24/23 12:50 IMPRESSION: Preseptal orbital cellulitis. Electronically Signed: Curtis Naylor MD at 15:04 EDT , Assessment & Plan Assessment/Plan (1) Preseptal cellulitis of right eye: (2) Hyperglycemia: (3) HTN (hypertension): PLAN: Plan Periorbital/preseptal cellulitis of the right eye -CT scan done and no signs of abscess -Consult ophthalmology -ED talked with ophthalmology and they recommended IV antibiotics only with vancomycin and Zosyn -Check MRSA PCR -Blood cultures obtained -Culture eye drainage -Warm compresses to right eye -Vancomycin and Zosyn -As needed pain medication -Scheduled Tylenol -Monitor clinically for improvement--> anticipate 3 to 5 days of IV antibiotics prior to transition to orals DM-2 uncontrolled -Appears to be on 70/30 insulin at home 15 units twice daily -Suspect compliance may be poor -Start Lantus 25 units at at bedtime -SSI-medium dose -Accu-Cheks before meals and at bedtime -Check hemoglobin A1c Hypertension -Awaiting med rec to be verified however previously has been on lisinopril -We will restart and verified -Hydralazine as needed every 6 hours for systolic blood pressure greater than 160 GERD -Continue PPI Tobacco abuse/marijuana abuse -Recommend cessation -Nicotine patch available DVT prophylaxis -Lovenox daily CODE STATUS Full code Charges/Coding Visit Charges Inpatient E&M: 00678 Init Hosp L2
[2023-01-24 15:40] VITALS: BP 135/69; PULSE 60; RESP 14; RESP 16; TEMP 36.8; O2SAT 98
[2023-01-24 16:15] LABS: Hemoglobin A1c 9.1 % (3.8-5.6)
[2023-01-24 17:14] LABS: Reflex Lactate? Y
--- NOTE | 2023-01-24 17:22 | PCM.RX.CS ---
Consult Pharmacy has been consulted to manage selected antiobiotic: Vancomycin Type of Consult: New start Suspected Infection: Other Labs: Sodium 138 mmol/L (136-145) 01/24/23 13:10 Potassium 4.0 mmol/L (3.5-5.1) 01/24/23 13:10 Chloride 101 mmol/L (98-107) 01/24/23 13:10 Carbon Dioxide 30.0 mmol/L (21.0-32.0) 01/24/23 13:10 Anion Gap 7 (5-15) 01/24/23 13:10 BUN 15 mg/dL (7-18) 01/24/23 13:10 Creatinine 1.29 mg/dL (0.70-1.30) 01/24/23 13:10 Est GFR (MDRD) Af Amer 73 mL/min (>60) 01/24/23 13:10 Est GFR (MDRD) Non-Af 60 mL/min (>60) 01/24/23 13:10 BUN/Creatinine Ratio 11.6 RATIO (10-20) 01/24/23 13:10 Glucose 269 mg/dL (74-106) H 01/24/23 13:10 Goal Trough: 15-20 mcg/mL Pharmacy Plan for Drug Dosing: NEW START IV VANCOMYCIN Consulting Physician: Dr. Miladis Worthington Indication: Periorbital cellulitis, R-eye Goal Trough: 15-20 SrCr: 1.29 CrCl: 68 mL/min Comments: 2000mg IV x1 ordered and administered in ED 01/24/23 @1633 Vancomycin Dose: 1000 mg IV Q12hr to start 01/25/23 @0400 Pending Level: 01/26/23 @0330, prior to 4th total dose per protocol Pharmacy Service will continue to monitor and adjust dosing as required.
--- NOTE | 2023-01-24 18:00 | NURSING ---
Just arrived to the floor from ED. Dr. Michelle Esqueda here to see patient.
[2023-01-24 18:01] VITALS: BMI 25.7
[2023-01-24 18:04] LABS: Lactic Acid 1.5 mmol/L (0.4-1.9)
[2023-01-24] MEDS: Lactated Ringers 1,000 ML 100 ML IV (18:09)
[2023-01-24] MEDS: Insulin Lispro 100 UNIT/ML INSULN.PEN SC (18:26)
[2023-01-24 18:33] VITALS: BP 165/85; PULSE 60; RESP 17; TEMP 36.8; O2SAT 99
[2023-01-24] MEDS: oxyCODONE 5 MG Tablet PO (18:43)
[2023-01-24 19:10] LABS: Bedside Glucose 353 mg/dL (74-106)
[2023-01-24 21:09] VITALS: O2SAT 98
[2023-01-24 21:12] VITALS: BP 145/80; PULSE 71; RESP 18; TEMP 37.4; O2SAT 98
[2023-01-24] MEDS: Acetaminophen 500 MG Tablet 1000 MG PO (21:19)
[2023-01-24] MEDS: Erythromycin Base 1 OPTH.TUBE 1 APPLIC EACH EYE (21:20)
[2023-01-24] MEDS: Insulin Glargine-YFGN 100 UNIT/ML Pen 25 UNIT SC (22:00)
[2023-01-24 23:00] LABS: M R Staph aureus DNA By PCR Negative (Negative); Probe Check PASS; Specimen Processing Control PASS
[2023-01-24 23:58] LABS: Bedside Glucose 190 mg/dL (74-106)
[2023-01-25] MEDS: Vancomycin IV 1,000 MG/200 ML BAG 200 MG IV ×2 (03:57→15:44)
[2023-01-25 03:59] VITALS: BP 156/91; PULSE 61; RESP 18; TEMP 36.8; O2SAT 100
[2023-01-25 06:23] LABS: Absolute Neutrophil Count 2.2 X10^3/uL (2.0-7.7); Basophil# 0.02 X10^3/uL; Basophil% 0.4 % (0-1); Eosinophil# 0.11 X10^3/uL; Eosinophils% 2.3 % (0-5); Hematocrit 39.5 % (40-54); Hemoglobin 13.2 g/dL (13.0-16.5); Lymphocyte % 42.4 % (19-41); Mean Corp Hgb Conc 33.4 g/dL (32-36); Mean Corpuscular Hgb 29.9 pg (27.0-32.0); Mean Corpuscular Volume 89.4 fL (80-94); Mean Platelet Vol. 9.7 fl (6.2-12.0); Monocyte# 0.41 X10^3/uL; Monocyte% 8.7 % (0-10); NRBC Flagged by Analyzer 0 % (0-5); Neutrophil # 2.17 X10^3/uL (2.7-7.7); Platelet Count 177 K/mm3 (150-450); RBC Distribution Width CV 13.5 % (11.6-14.6); RBC Distribution Width SD 44.5 fl (35.1-43.9); Red Blood Count 4.42 M/mm3 (4.6-6.2); White Blood Count 4.7 K/mm3 (4.4-11.0)
[2023-01-25] MEDS: Insulin Lispro 100 UNIT/ML INSULN.PEN SC ×3 (06:48→16:33)
[2023-01-25] MEDS: Acetaminophen 500 MG Tablet 1000 MG PO ×3 (06:52→21:43)
[2023-01-25 06:59] LABS: ALB/GLOB Ratio 0.7 RATIO (0.9-2.4); AST(SGOT) 18 U/L (15-37); Alanine Aminotransfer ALT/SGPT 18 U/L (16-61); Albumin, Serum 2.4 g/dL (3.2-5.0); Alkaline Phosphatase 106 U/L (45-117); Anion Gap 4 (5-15); BUN 8 mg/dL (7-18); BUN/Creat Ratio 8.2 RATIO (10-20); Chloride 110 mmol/L (98-107); Creatinine, Serum 0.97 mg/dL (0.70-1.30); EST Glomerular Filtration Rate 84 mL/min (>60); Est Glom Filt Rate - Afr Amer 101 mL/min (>60); Globulin 3.4 g/dL (2.2-4.2); Glucose 233 mg/dL (74-106); Magnesium 2.2 mg/dL (1.6-2.6); Phosphorus 2.5 mg/dL (2.5-4.9); Potassium 3.7 mmol/L (3.5-5.1); Protein, Total 5.8 g/dL (6.4-8.2); Sodium Level 140 mmol/L (136-145)
[2023-01-25 07:28] LABS: Bedside Glucose 185 mg/dL (74-106)
[2023-01-25 10:30] VITALS: BP 156/97; PULSE 58; RESP 18; TEMP 37.1; O2SAT 98
[2023-01-25] MEDS: Pantoprazole Sodium 40 MG Tablet PO (10:38)
[2023-01-25] MEDS: Enoxaparin 40 MG/0.4 ML Syringe SC (10:38)
[2023-01-25] MEDS: Erythromycin Base 1 OPTH.TUBE 1 APPLIC EACH EYE ×2 (10:38→21:41)
[2023-01-25] MEDS: Pregabalin 75 MG Capsule PO ×2 (10:46→21:48)
--- NOTE | 2023-01-25 11:42 | CASEMGMT ---
LORNE HERMAN Assessment: Face to Face with pt for initial transition planning/care coordination assessment. LORNE HERMAN introduced self and role at [facility], pt voices understanding and consents to assessment. Pt is A/O x4 and answers all questions appropriately at this time. Pt lying in bed in no distress. Care providers, pharmacy, and demographics verified/updated. Admitting Dx: orbital cellulitis PCP:PAIGE Garcia Specialists:Pt denies. Preferred Pharmacy: [facility] Insurance: [facility] Prescription Benefit: yes LNOK: My Alexandre, Living Arrangements: Pt lives with in a ground level apt with no steps to enter. Pt reports he is I in ADL's and denies concerns at home. Transportation: Pt provides transportation for pt. DME/HHC/SNF: Pt denies having any DME in the home. Pt states he needs a glucometer. Rx completed and placed on chart with green sheet. Pt is aware this will be given at dc. Pt denies hx of HHC or SNF stays. Pt states no concerns with going home at time of dc. Pt states no further concerns/needs. CM to follow. Advised pt to ask CM if any further question/concerns/needs arise, voices understanding. Pt Goal: Home Plan: Home
[2023-01-25 12:14] LABS: Bedside Glucose 228 mg/dL (74-106)
--- NOTE | 2023-01-25 12:21 | PCM.PN.HOSP ---
Reason for Visit Reason for Visit: Bilateral eye pain right greater than left Subjective Subjective Patient states he is feeling a little bit better this morning. Does complain of pain along the temporal area of his right head that is sharp and stabbing in nature. He states it seems to come from his right eye. It sounds like nerve inflammation and I indicated to him we would start some Lyrica to see if this helps. Eyes do appear somewhat better however still grossly abnormal. Was seen by ophthalmology and they added erythromycin eye ointment twice daily. Still some photophobia. Objective Data Objective Data Vital Signs: Vital Signs Temp Pulse Resp BP Pulse Ox O2 Del Method 98.7 F 58 L 18 156/97 H 98 Room Air 01/25/23 10:30 01/25/23 10:30 01/25/23 10:30 01/25/23 10:30 01/25/23 10:30 01/25/23 10:32 Oxygen Delivery Method Room Air Weight: 86.183 kg Body Mass Index (BMI) 25.7 Intake & Output: Intake and Output for Last 24 Hours 01/23/23 01/24/23 01/25/23 23:59 23:59 23:59 Intake Total 2140 / 2140 1685 / 1685 Balance 2140 / 2140 1685 / 1685 Lab / Micro Data Result Diagrams: 01/25/23 06:01 01/25/23 06:01 Labs: Laboratory Results - last 24 hr 01/24/23 13:10: WBC 6.7, RBC 5.10, Hgb 15.3, Hct 44.9, MCV 88.0, MCH 30.0, MCHC 34.1, RDW Std Deviation 44.2 H, RDW Coeff of [place] 13.6, Plt Count 231, MPV 10.1, Immature Gran % (Auto) 0.300, Neut % (Auto) 63.7, Lymph % (Auto) 25.3, [place] % (Auto) 8.2, Eos % (Auto) 1.8, Baso % (Auto) 0.7, Absolute Neuts (auto) 4.3, Absolute Lymphs (auto) 1.69, Nucleated RBC % 0 01/24/23 13:10: PT 12.5, INR 0.9, APTT 27.0 01/24/23 13:10: Sodium 138, Potassium 4.0, Chloride 101, Carbon Dioxide 30.0, Anion Gap 7, BUN 15, Creatinine 1.29, Estim Creat Clear Calc 67.67, Est GFR (MDRD) Af Amer 73, Est GFR (MDRD) Non-Af 60, BUN/Creatinine Ratio 11.6, Glucose 269 H, Calcium 9.1, Total Bilirubin 0.40, AST 20, ALT 24, Alkaline Phosphatase 135 H, Total Protein 7.7, Albumin 3.3, Globulin 4.4 H, Albumin/Globulin Ratio 0.8 L 01/24/23 13:10: Lactic Acid 2.0 01/24/23 13:10: Hemoglobin A1c 9.1 H 01/24/23 14:33: Urine Color Straw, Urine Clarity Clear, Urine pH 6.5, Ur Specific [place] 1.010, Urine Protein Negative, Urine Glucose (UA) 1000 H, Urine Ketones Negative, Urine Occult Blood Negative, Urine Nitrite Negative, Urine Bilirubin Negative, Urine Urobilinogen Normal, Ur Leukocyte Esterase Negative, Urine RBC 0 SEEN, Urine WBC 0 SEEN, Ur Squamous Epith Cells 0 SEEN, Urine Bacteria 0 SEEN, Urine Mucus 0 SEEN 01/24/23 17:25: Lactic Acid 1.5 01/24/23 18:08: POC Glucose 353 H 01/24/23 18:40: MRSA (PCR) Negative 01/24/23 21:16: POC Glucose 190 H 01/25/23 06:01: WBC 4.7, RBC 4.42 L, Hgb 13.2, Hct 39.5 L, MCV 89.4, MCH 29.9, MCHC 33.4, RDW Std Deviation 44.5 H, RDW Coeff of [place] 13.5, Plt Count 177, MPV 9.7, Immature Gran % (Auto) 0.200, Neut % (Auto) 46.0 L, Lymph % (Auto) 42.4 H, [place] % (Auto) 8.7, Eos % (Auto) 2.3, Baso % (Auto) 0.4, Absolute Neuts (auto) 2.2, Absolute Lymphs (auto) 2.00, Nucleated RBC % 0 01/25/23 06:01: Sodium 140, Potassium 3.7, Chloride 110 H, Carbon Dioxide 26.0, Anion Gap 4 L, BUN 8, Creatinine 0.97, Estim Creat Clear Calc 90.00, Est GFR (MDRD) Af Amer 101, Est GFR (MDRD) Non-Af 84, BUN/Creatinine Ratio 8.2 L, Glucose 233 H, Calcium 8.0 L, Phosphorus 2.5, Magnesium 2.2, Total Bilirubin 0.30, AST 18, ALT 18, Alkaline Phosphatase 106, Total Protein 5.8 L, Albumin 2.4 L, Globulin 3.4, Albumin/Globulin Ratio 0.7 L 01/25/23 06:47: POC Glucose 185 H 01/25/23 11:54: POC Glucose 228 H Radiography Diagnostic Testing: Radiology Impression CT Orbit Sella Inner 01/24/23 12:50 IMPRESSION: Preseptal orbital cellulitis. Electronically Signed: Curtis Naylor MD at 15:04 EDT , Physical Exam Const alert, oriented x3 and no apparent distress Constitutional Narrative: Thin, -Macedonian male, sitting up at the bedside on the edge of the bed eating breakfast, appears comfortable, nontoxic, still with photophobia General Appearance: cooperative HEENT normocephalic, head/scalp atraumatic, hearing grossly normal bilaterally and moist oral mucous membranes Eyes Negative for PERRL, EOMs intact bilaterally or conjunctivae normal Eyes Narrative: Both eyes are significantly injected right greater than left, swelling of the right eyelid is improved and patient is able to open eye better, drainage has improved out of the right eye Resp normal respiratory effort, no retractions, no use of accessory muscles and clear to auscultation bilaterally Resp Narrative: Diffusely diminished but clear Auscultation: Negative for rales, rhonchi or wheezes Cardio regular rate, regular rhythm, S1 normal heart sound, S2 normal heart sound, no murmurs, no rub, no gallops and no clicks GI normal to inspection, nondistended, normoactive bowel sounds, soft to palpation and non-tender GI Narrative: Thin Extremity no clubbing, cyanosis or edema Extremity Narrative: Pedal pulses are 2+ Neuro oriented x3, moves all extremities and no focal motor deficits Speech: speech normal Psych affect normal Psych Narrative: Pleasant Assessment & Plan Assessment/Plan (1) Preseptal cellulitis of right eye: (2) Hyperglycemia: (3) HTN (hypertension): PLAN: Plan Periorbital/preseptal cellulitis of the right eye -CT scan done and no signs of abscess -Ophthalmology evaluated the patient add erythromycin eye ointment twice daily -Continue vancomycin and Zosyn -MRSA PCR is negative so we may be able to discontinue vancomycin soon -Blood cultures remain pending -Culture eye drainage is pending -Warm compresses to right eye -As needed narcotics -Scheduled Tylenol -Add Lyrica 75 mg p.o. twice daily -Monitor clinically for improvement--> anticipate 2 to 4 days of IV antibiotics prior to transition to orals DM-2 uncontrolled -Appears to be on 70/30 insulin at home 15 units twice daily -Suspect compliance may be poor -Increase Lantus from 25 units to 35 units at at bedtime -Continue SSI-medium dose -Accu-Cheks before meals and at bedtime -Hemoglobin A1c was 9.1 Hypertension -Restart home lisinopril -Hydralazine as needed every 6 hours for systolic blood pressure greater than 160 GERD -Continue PPI Tobacco abuse/marijuana abuse -Recommend cessation -Nicotine patch available DVT prophylaxis -Lovenox daily CODE STATUS Full code Charges/Coding Visit Charges Inpatient E&M: 29956 Subs Hosp L2
[2023-01-25] MEDS: oxyCODONE 5 MG Tablet PO (14:52)
[2023-01-25 14:53] VITALS: BP 173/73; PULSE 55; RESP 18; TEMP 37.1; O2SAT 100
[2023-01-25 16:52] LABS: Bedside Glucose 223 mg/dL (74-106)
[2023-01-25 21:34] VITALS: BP 152/81; PULSE 60; RESP 18; TEMP 37; O2SAT 98
[2023-01-25] MEDS: Insulin Glargine-YFGN 100 UNIT/ML Pen 35 UNIT SC (21:43)
[2023-01-25 22:08] LABS: Bedside Glucose 270 mg/dL (74-106)
[2023-01-26 03:42] VITALS: BP 157/90; PULSE 56; RESP 18; TEMP 36.5; O2SAT 99
[2023-01-26] MEDS: Vancomycin IV 1,000 MG/200 ML BAG 200 MG IV (03:59)
[2023-01-26] MEDS: 0.9% Saline Lock 10 ML Syringe IV ×2 (03:59→22:55)
[2023-01-26] MEDS: oxyCODONE 5 MG Tablet PO ×3 (04:03→13:27)
[2023-01-26 04:18] LABS: Vancomycin, Trough Level 9.8 ug/mL (5.0-15.0)
--- NOTE | 2023-01-26 04:45 | PCM.RX.CS ---
Consult Pharmacy has been consulted to manage selected antiobiotic: Vancomycin Type of Consult: Follow-up Prior Doses of Antibiotics Received/Current Regimen: Medications Vancomycin HCl 1,750 mg/ (Sodium Chloride) 535 mls @ 250 mls/hr IV Q12H KAYDEN Vancomycin HCl (Vancomycin) 1,000 mg in 200 mls @ 200 mls/hr IV Q12H KAYDEN Stop: 01/26/23 05:30 Last Admin: 01/26/23 03:59 Dose: 200 mls/hr Labs: Sodium 140 mmol/L (136-145) 01/25/23 06:01 Potassium 3.7 mmol/L (3.5-5.1) 01/25/23 06:01 Chloride 110 mmol/L (98-107) H 01/25/23 06:01 Carbon Dioxide 26.0 mmol/L (21.0-32.0) 01/25/23 06:01 Anion Gap 4 (5-15) L 01/25/23 06:01 BUN 8 mg/dL (7-18) 01/25/23 06:01 Creatinine 0.97 mg/dL (0.70-1.30) 01/25/23 06:01 Est GFR (MDRD) Af Amer 101 mL/min (>60) 01/25/23 06:01 Est GFR (MDRD) Non-Af 84 mL/min (>60) 01/25/23 06:01 BUN/Creatinine Ratio 8.2 RATIO (10-20) L 01/25/23 06:01 Glucose 233 mg/dL (74-106) H 01/25/23 06:01 Vancomycin Trough 9.8 ug/mL (5.0-15.0) 01/26/23 03:30 Microbiology: Microbiology 01/24/23 16:35 Discharge - Eye Gram Stain - Final 01/24/23 16:35 Discharge - Eye Eye Culture - Preliminary Gram positive marc Staphylococcus species Weight used for dosin kg Estimated Creatinine Clearance: 90 Goal Trough: 15-20 mcg/mL Pharmacy Plan for Drug Dosing: Vancomycin trough level, drawn 11.75 hours post-dose, was 9.8. This was well below the target range of 15-20. Per dosing calculator, a new dose [place] 1750mg q12h should give an estimated trough of 17.6. Another level will be drawn prior to the fourth dose of the new regimen. Pharmacy Service will continue to monitor and adjust dosing as required. Follow-Up Labs: Trough Vancomycin Labs to be done on [date and time ordered]: 01/28/23 @7116
[2023-01-26] MEDS: Acetaminophen 500 MG Tablet 1000 MG PO ×3 (06:49→22:53)
[2023-01-26] MEDS: Insulin Lispro 100 UNIT/ML INSULN.PEN SC (06:49)
[2023-01-26 07:20] LABS: Bedside Glucose 170 mg/dL (74-106)
[2023-01-26] MEDS: Enoxaparin 40 MG/0.4 ML Syringe SC (09:22)
[2023-01-26] MEDS: Lisinopril 20 MG Tablet PO (09:23)
[2023-01-26] MEDS: Pregabalin 75 MG Capsule PO ×2 (09:23→22:53)
[2023-01-26] MEDS: Pantoprazole Sodium 40 MG Tablet PO (09:23)
[2023-01-26] MEDS: Loratadine 10 MG Tablet PO (09:23)
[2023-01-26] MEDS: Aspirin E.C. 81 MG Tablet PO (09:23)
[2023-01-26] MEDS: Erythromycin Base 1 OPTH.TUBE 1 APPLIC EACH EYE ×2 (09:24→22:58)
[2023-01-26 09:40] VITALS: BP 155/82; PULSE 65; RESP 18; TEMP 36.9; O2SAT 99
[2023-01-26 10:00] VITALS: PULSE 60
[2023-01-26] MEDS: Insulin Lispro 100 UNIT/ML INSULN.PEN 10 UNIT SC ×2 (11:55→16:56)
[2023-01-26 12:16] LABS: Bedside Glucose 204 mg/dL (74-106)
--- NOTE | 2023-01-26 12:44 | PN.HOSP_ITS ---
Reason for Visit Reason for Visit: Pain redness and swelling Subjective Subjective Still pain in his eyes however it seems to be improved. States the Lyrica we added yesterday helped. Difficulty describing the pain in the lateral part of his right head. But, did indicate the Lyrica helped this pain. Swelling of his eye and surrounding area seems to be improved. Still difficulty opening his eyes. States that his vision intermittently has blurred Objective Data Objective Data Vital Signs: Vital Signs Temp Pulse Resp BP Pulse Ox O2 Del Method 98.4 F 60 18 155/82 H 99 Room Air 01/26/23 09:40 01/26/23 10:00 01/26/23 09:40 01/26/23 09:40 01/26/23 09:40 01/26/23 11:07 Oxygen Delivery Method Room Air Weight: 86.183 kg Body Mass Index (BMI) 25.7 Intake & Output: Intake and Output for Last 24 Hours 01/24/23 01/25/23 01/26/23 23:59 23:59 23:59 Intake Total 2140 / 2140 2732.75 / 2732.75 752.25 / 752.25 Balance 2140 / 2140 2732.75 / 2732.75 752.25 / 752.25 Lab / Micro Data Result Diagrams: 01/25/23 06:01 01/25/23 06:01 Labs: Laboratory Results - last 24 hr 01/25/23 16:31: POC Glucose 223 H 01/25/23 21:37: POC Glucose 270 H 01/26/23 03:30: Vancomycin Trough 9.8 01/26/23 06:47: POC Glucose 170 H 01/26/23 11:54: POC Glucose 204 H Micro: Microbiology 01/24/23 16:35 Discharge - Eye Gram Stain - Final 01/24/23 16:35 Discharge - Eye Eye Culture - Preliminary Gram positive marc Staphylococcus aureus Gram Positive Cocci 01/24/23 14:33 Urine, Clean Catch Urine Culture - Preliminary Culture exhibits no growth. 01/24/23 13:10 Blood Culture (Wb) - Left Forearm Blood Culture - Preliminary No growth in 48 hours. Physical Exam Const alert, oriented x3 and no apparent distress Constitutional Narrative: Thin, -[place] male, lying in bed resting, appears comfortable, nontoxic, still with photophobia General Appearance: cooperative HEENT normocephalic, head/scalp atraumatic, hearing grossly normal bilaterally and moist oral mucous membranes Eyes Negative for PERRL, EOMs intact bilaterally or conjunctivae normal Eyes Narrative: Less injection into bilateral eyes with the right eye significantly better than previous, swelling has reduced and surrounding ocular area, shaping machine tender with palpation to the the eyelids bilaterally with ptosis, right eyelid is less inverted with decreased swelling Resp normal respiratory effort, no retractions, no use of accessory muscles and clear to auscultation bilaterally Resp Narrative: Diffusely diminished but clear Auscultation: Negative for rales, rhonchi or wheezes Cardio regular rate, regular rhythm, S1 normal heart sound, S2 normal heart sound, no murmurs, no rub, no gallops and no clicks GI normal to inspection, nondistended, normoactive bowel sounds, soft to palpation and non-tender GI Narrative: Thin Extremity no clubbing, cyanosis or edema Extremity Narrative: Pedal pulses are 2+ Neuro oriented x3, moves all extremities and no focal motor deficits Speech: speech normal Psych affect normal Psych Narrative: Pleasant Assessment & Plan Assessment/Plan (1) Preseptal cellulitis of right eye: (2) Hyperglycemia: (3) HTN (hypertension): PLAN: Plan Periorbital/preseptal cellulitis of the right eye -CT scan done and no signs of abscess -Ophthalmology evaluated the patient add erythromycin eye ointment twice daily -Continue vancomycin and Zosyn -Eye drainage culture shows polymicrobial organisms predominantly gram-positive one of them being Staph aureus -Blood cultures are negative -Culture eye drainage is pending -Warm compresses to right eye -As needed narcotics -Scheduled Tylenol -Continue Lyrica 75 mg p.o. twice daily -Monitor clinically for improvement--> anticipate 1 to 3 days of IV antibiotics prior to transition to orals -We will consult ID for assistance with antibiotics DM-2 uncontrolled -Appears to be on 70/30 insulin at home 15 units twice daily -Suspect compliance may be poor -Continue Lantus 35 units at at bedtime -Add Humalog 10--> 3 times a day with meals -Hold SSI-medium dose with the addition of scheduled log and reassess -Accu-Cheks before meals and at bedtime -Hemoglobin A1c was 9.1 Hypertension -Continue home lisinopril but increase dose from 10 to 20 mg due to consistently elevated blood pressures -Hydralazine as needed every 6 hours for systolic blood pressure greater than 160 GERD -Continue PPI Tobacco abuse/marijuana abuse -Recommend cessation -Nicotine patch available DVT prophylaxis -Lovenox daily CODE STATUS Full code Charges/Coding Visit Charges Inpatient E&M: 49276 Subs Hosp L2
[2023-01-26 13:21] LABS: Erythrocyte Sedimentation Rate 17 mm/hr (0-20)
[2023-01-26 15:04] VITALS: BP 150/84; PULSE 66; RESP 16; TEMP 37.1; O2SAT 99
[2023-01-26 17:27] LABS: Bedside Glucose 173 mg/dL (74-106)
[2023-01-26 22:48] VITALS: BP 154/86; PULSE 54; RESP 18; TEMP 36.8; O2SAT 98
[2023-01-26] MEDS: Insulin Glargine-YFGN 100 UNIT/ML Pen 35 UNIT SC (22:51)
[2023-01-26 23:22] LABS: Bedside Glucose 212 mg/dL (74-106)
[2023-01-27 04:41] VITALS: BP 152/81; PULSE 53; RESP 18; TEMP 36.6; O2SAT 93
[2023-01-27] MEDS: 0.9% Saline Lock 10 ML Syringe IV (06:36)
[2023-01-27] MEDS: Acetaminophen 500 MG Tablet 1000 MG PO ×3 (06:36→21:41)
[2023-01-27 07:44] VITALS: BP 147/82; PULSE 46; RESP 16; TEMP 36.6; O2SAT 97
[2023-01-27] MEDS: Aspirin E.C. 81 MG Tablet PO (07:54)
[2023-01-27 08:13] LABS: Bedside Glucose 69 mg/dL (74-106)
[2023-01-27 09:21] VITALS: O2SAT 95
--- NOTE | 2023-01-27 09:40 | PCM.PN.HOSP ---
Reason for Visit Reason for Visit: Eye pain/redness/drainage Subjective Subjective Patient states overall he is feeling better. Still with some photophobia however this seems to be improving as well. He does have dark sunglasses to wear after he leaves. He will need follow-up including clinic where he was seen previously after discharge. Will await ID input prior to discharge with hopeful discharge in the next 24 hours as long as he continues to improve. Objective Data Objective Data Vital Signs: Vital Signs Temp Pulse Resp BP Pulse Ox O2 Del Method 97.8 F 46 L 16 147/82 H 95 Room Air 01/27/23 07:44 01/27/23 07:44 01/27/23 07:44 01/27/23 07:44 01/27/23 09:21 01/27/23 09:21 Oxygen Delivery Method Room Air Weight: 86.183 kg Body Mass Index (BMI) 25.7 Intake & Output: Intake and Output for Last 24 Hours 01/25/23 01/26/23 01/27/23 23:59 23:59 23:59 Intake Total 2732.75 / 2732.75 2737.25 / 2737.25 985 / 985 Output Total 900 / 900 Balance 2732.75 / 2732.75 1837.25 / 1837.25 985 / 985 Lab / Micro Data Result Diagrams: 01/25/23 06:01 01/25/23 06:01 Labs: Laboratory Results - last 24 hr 01/26/23 03:30: ESR 17 01/26/23 11:54: POC Glucose 204 H 01/26/23 16:53: POC Glucose 173 H 01/26/23 22:50: POC Glucose 212 H 01/27/23 07:41: POC Glucose 69 L Micro: Microbiology 01/24/23 16:35 Discharge - Eye Gram Stain - Final 01/24/23 16:35 Discharge - Eye Eye Culture - Final Cutibacterium acnes Staphylococcus aureus Staphylococcus epidermidis 01/24/23 15:30 Blood Culture (Wb) - Anticubital Left Blood Culture - Preliminary No growth in 48 hours. 01/24/23 14:33 Urine, Clean Catch Urine Culture - Final Culture exhibits no growth. 01/24/23 13:10 Blood Culture (Wb) - Left Forearm Blood Culture - Preliminary No growth in 48 hours. Physical Exam Const alert, oriented x3 and no apparent distress Constitutional Narrative: Thin, -Spanish male, lying in bed resting, appears comfortable, nontoxic, still with photophobia and has towel covering eyes General Appearance: cooperative HEENT normocephalic, head/scalp atraumatic, hearing grossly normal bilaterally and moist oral mucous membranes Eyes Negative for PERRL, EOMs intact bilaterally or conjunctivae normal Eyes Narrative: Less injection into bilateral eyes with the right eye significantly better than previous, swelling has reduced and surrounding ocular area, still mildly tender with palpation to the the eyelids bilaterally with ptosis, right eyelid inversion has almost resolved Resp normal respiratory effort, no retractions, no use of accessory muscles and clear to auscultation bilaterally Resp Narrative: Diffusely diminished but clear Auscultation: Negative for rales, rhonchi or wheezes Cardio regular rate, regular rhythm, S1 normal heart sound, S2 normal heart sound, no murmurs, no rub, no gallops and no clicks GI normal to inspection, nondistended, normoactive bowel sounds, soft to palpation and non-tender GI Narrative: Thin Extremity no clubbing, cyanosis or edema Extremity Narrative: Pedal pulses are 2+ Neuro oriented x3, moves all extremities and no focal motor deficits Speech: speech normal Psych affect normal Psych Narrative: Pleasant Assessment & Plan Assessment/Plan (1) Preseptal cellulitis of right eye: (2) Hyperglycemia: (3) HTN (hypertension): PLAN: Plan Periorbital/preseptal cellulitis of the right eye -CT scan done and no signs of abscess -Ophthalmology evaluated the patient add erythromycin eye ointment twice daily -Continue vancomycin and Zosyn -Eye drainage culture shows polymicrobial organisms predominantly gram-positive one of them being Staph aureus -Blood cultures are negative -Culture eye drainage shows cutibacterium acnes/Staph aureus/Staph epidermidis -Staph aureus appears to be MSSA -Warm compresses to right eye -As needed narcotics -Scheduled Tylenol -Continue Lyrica 75 mg p.o. twice daily -Monitor clinically for improvement--> anticipate 1 to 2 days of IV antibiotics prior to transition to orals -We will consult ID for assistance with antibiotics -Possible discharge tomorrow after input given from infectious disease DM-2 uncontrolled -Appears to be on 70/30 insulin at home 15 units twice daily -Suspect compliance may be poor -Patient with a hypoglycemic episode this morning having a blood sugar of 68 -Discontinue Humalog 10--> 3 times a day with meals -Decrease Lantus from 35 units nightly to 30 units at at bedtime -Restart SSI-medium dose with the addition of scheduled log and reassess -Accu-Cheks before meals and at bedtime -Hemoglobin A1c was 9.1 Hypertension -Blood pressure still not within goal range despite increase of lisinopril from 10 to 20 mg -Add amlodipine 5 mg and continue to monitor -Hydralazine as needed every 6 hours for systolic blood pressure greater than 160 GERD -Continue PPI Tobacco abuse/marijuana abuse -Recommend cessation -Nicotine patch available DVT prophylaxis -Lovenox daily CODE STATUS Full code Charges/Coding Visit Charges Inpatient E&M: 57411 Subs Hosp L2
[2023-01-27] MEDS: oxyCODONE 5 MG Tablet PO ×2 (10:30→20:04)
[2023-01-27] MEDS: Loratadine 10 MG Tablet PO (10:30)
[2023-01-27] MEDS: Erythromycin Base 1 OPTH.TUBE 1 APPLIC EACH EYE ×2 (10:30→21:40)
[2023-01-27] MEDS: Enoxaparin 40 MG/0.4 ML Syringe SC (10:31)
[2023-01-27] MEDS: amLODIPine 5 MG Tablet PO (10:31)
[2023-01-27] MEDS: Pantoprazole Sodium 40 MG Tablet PO (10:32)
[2023-01-27] MEDS: Lisinopril 20 MG Tablet PO (10:32)
[2023-01-27] MEDS: Pregabalin 75 MG Capsule PO ×2 (10:34→21:39)
[2023-01-27] MEDS: Insulin Lispro 100 UNIT/ML INSULN.PEN SC ×2 (11:11→16:39)
[2023-01-27 12:25] LABS: Bedside Glucose 179 mg/dL (74-106)
[2023-01-27 14:09] VITALS: BP 149/67; PULSE 58; RESP 16; TEMP 36.8; O2SAT 96
[2023-01-27 16:55] LABS: Bedside Glucose 212 mg/dL (74-106)
[2023-01-27 20:00] VITALS: BP 143/80; PULSE 54; RESP 16; TEMP 37.7; O2SAT 97
[2023-01-27] MEDS: Insulin Glargine-YFGN 100 UNIT/ML Pen 30 UNIT SC (21:41)
[2023-01-27 22:18] LABS: Bedside Glucose 277 mg/dL (74-106)
[2023-01-28 02:10] VITALS: BP 153/88; PULSE 52; RESP 16; TEMP 36.6; O2SAT 100
[2023-01-28 03:33] LABS: Bedside Glucose 125 mg/dL (74-106)
[2023-01-28 04:06] LABS: Absolute Lymphocyte Count 1.94 X10^3/uL (0.83-4.51); Absolute Neutrophil Count 2.1 X10^3/uL (2.0-7.7); Basophil# 0.05 X10^3/uL; Eosinophils% 4.2 % (0-5); Hematocrit 37.5 % (40-54); Hemoglobin 12.1 g/dL (13.0-16.5); Lymphocyte # 1.94 X10^3/ul (0.83-4.51); Lymphocyte % 40.4 % (19-41); Mean Corp Hgb Conc 32.3 g/dL (32-36); Mean Corpuscular Hgb 29.7 pg (27.0-32.0); Mean Corpuscular Volume 91.9 fL (80-94); Mean Platelet Vol. 10.4 fl (6.2-12.0); Monocyte# 0.45 X10^3/uL; Monocyte% 9.4 % (0-10); NRBC Flagged by Analyzer 0 % (0-5); Neutrophil # 2.14 X10^3/uL (2.7-7.7); Neutrophil % 44.6 % (47-70); POSITIVE COUNT YES; Platelet Count 183 K/mm3 (150-450); RBC Distribution Width CV 13.5 % (11.6-14.6); RBC Distribution Width SD 46.1 fl (35.1-43.9); Red Blood Count 4.08 M/mm3 (4.6-6.2); White Blood Count 4.8 K/mm3 (4.4-11.0)
[2023-01-28 04:15] LABS: Differential Indicated SCAN CRITERIA MET
[2023-01-28 04:40] LABS: Anion Gap 6 (5-15); BUN 12 mg/dL (7-18); BUN/Creat Ratio 12.1 RATIO (10-20); Calcium,Total 8.4 mg/dL (8.5-10.1); Chloride 111 mmol/L (98-107); Creatinine, Serum 0.99 mg/dL (0.70-1.30); EST Glomerular Filtration Rate 82 mL/min (>60); Est Glom Filt Rate - Afr Amer 99 mL/min (>60); Estimated Creatinine Clearance 88.18 ml/min; Glucose 121 mg/dL (74-106); Potassium 3.3 mmol/L (3.5-5.1); Sodium Level 142 mmol/L (136-145)
[2023-01-28 04:42] LABS: Vancomycin, Trough Level 20.2 ug/mL (5.0-15.0)
[2023-01-28] MEDS: 0.9% Saline Lock 10 ML Syringe IV (04:50)
[2023-01-28] MEDS: oxyCODONE 5 MG Tablet PO (04:55)
--- NOTE | 2023-01-28 05:01 | PHA.PHARE_ITS ---
Consult Pharmacy has been consulted to manage selected antiobiotic: Vancomycin Type of Consult: Follow-up Prior Doses of Antibiotics Received/Current Regimen: Medications Vancomycin HCl 1,750 mg/ (Sodium Chloride) 535 mls @ 250 mls/hr IV Q12H KAYDEN Last Admin: 01/28/23 04:50 Dose: 250 mls/hr Labs: Sodium 142 mmol/L (136-145) 01/28/23 03:45 Potassium 3.3 mmol/L (3.5-5.1) L 01/28/23 03:45 Chloride 111 mmol/L (98-107) H 01/28/23 03:45 Carbon Dioxide 25.0 mmol/L (21.0-32.0) 01/28/23 03:45 Anion Gap 6 (5-15) 01/28/23 03:45 BUN 12 mg/dL (7-18) 01/28/23 03:45 Creatinine 0.99 mg/dL (0.70-1.30) 01/28/23 03:45 Est GFR (MDRD) Af Amer 99 mL/min (>60) 01/28/23 03:45 Est GFR (MDRD) Non-Af 82 mL/min (>60) 01/28/23 03:45 BUN/Creatinine Ratio 12.1 RATIO (10-20) 01/28/23 03:45 Glucose 121 mg/dL (74-106) H 01/28/23 03:45 Vancomycin Trough 20.2 ug/mL (5.0-15.0) H 01/28/23 03:45 Microbiology: Microbiology 01/24/23 16:35 Discharge - Eye Gram Stain - Final 01/24/23 16:35 Discharge - Eye Eye Culture - Final Cutibacterium acnes Staphylococcus aureus Staphylococcus epidermidis 01/24/23 16:35 Discharge - Eye Anaerobic Culture - Preliminary 01/24/23 15:30 Blood Culture (Wb) - Anticubital Left Blood Culture - Preliminary No growth in 48 hours. 01/24/23 14:33 Urine, Clean Catch Urine Culture - Final Culture exhibits no growth. 01/24/23 13:10 Blood Culture (Wb) - Left Forearm Blood Culture - Preliminary No growth in 48 hours. Weight used for dosin kg Estimated Creatinine Clearance: 88 Goal Trough: 15-20 mcg/mL Pharmacy Plan for Drug Dosing: Vancomycin trough level, drawn 11.25hrs post-dose, of 20.2 was right at the top end of the 15-20 target range. Will continue dosing at 1750mg q12h, and will re- draw a trough in two days. Pharmacy Service will continue to monitor and adjust dosing as required. Follow-Up Labs: Trough Vancomycin Labs to be done on [date and time ordered]: 01/30/23 @0374
[2023-01-28] MEDS: Acetaminophen 500 MG Tablet 1000 MG PO (06:07)
[2023-01-28 06:32] LABS: Bedside Glucose 96 mg/dL (74-106)
[2023-01-28 07:33] VITALS: BP 150/76; PULSE 47; RESP 16; TEMP 36.6; O2SAT 100
[2023-01-28] MEDS: Aspirin E.C. 81 MG Tablet PO (07:43)
[2023-01-28] MEDS: Potassium Chloride Oral Tablet 20 MEQ 40 MEQ PO (09:06)
--- NOTE | 2023-01-28 09:54 | PCM.DC.SUM ---
Providers Date of Admission: 01/24/23 Date of Discharge: 01/28/23 Primary Care Physician: PAIGE Mackay Consultations 01/24/23 15:52 Consult: Ophthamology Routine Consulting Provider: Hermilo Douglass Reason for Consult: Severe eye infection EMERGENT Consult: No Notified: Yes Date Notified: 01/24/23 Time Notified: 15:52 Method of Notification: phone 01/26/23 12:44 Consult: Infectious Disease Routine Consulting Provider: Lan Kothari Reason for Consult: Preseptal cellulitis EMERGENT Consult: No Notified: Yes Date Notified: 01/26/23 Time Notified: 07:20 Method of Notification: Text Reason For Visit: ORBITAL CELLULITIS Diagnosis Discharge Diagnosis (1) Preseptal cellulitis of right eye: Status: Acute Code(s): L03.213 - Periorbital cellulitis (2) Hyperglycemia: Status: Acute Code(s): R73.9 - Hyperglycemia, unspecified (3) HTN (hypertension): Status: Chronic Code(s): I10 - Essential (primary) hypertension (4) Blepharitis of both eyes: Status: Acute Code(s): H01.003 - Unspecified blepharitis right eye, unspecified eyelid; H01.006 - Unspecified blepharitis left eye, unspecified eyelid (5) DM type 2 (diabetes mellitus, type 2): Status: Chronic Code(s): E11.9 - Type 2 diabetes mellitus without complications Medications at Discharge Home Medications aspirin 81 mg tablet,delayed release 81 mg PO DAILY health maintenance 03/03/18 cetirizine 10 mg capsule (Zyrtec) 10 mg PO DAILY Check with primary doctor 03/03/18 gabapentin 100 mg capsule 100 mg PO QHS Check with primary doctor 03/03/18 omeprazole 20 mg capsule,delayed release 20 mg PO DAILY gerd 03/03/18 amoxicillin 875 mg-potassium clavulanate 125 mg tablet 1 tab PO BID #18 tabs 01/28/23 erythromycin 5 mg/gram (0.5 %) eye ointment 1 applic EACH EYE BID 10 days #50 grams 01/28/23 insulin human U-100 NPH-regulr 70-30 mix 100 unit/mL subcutaneous susp (Novolin 70/30 U-100 Insulin) 20 unit (0.2 mL) subcut BID diabetes #10 mL 01/28/23 lisinopril 40 mg tablet 40 mg PO DAILY #30 tabs 01/28/23 oxycodone 5 mg tablet 5 mg PO Q4H PRN PRN Pain Score 4-10 3 days #18 tabs 01/28/23 Hospital Course Procedures - (CT scan of the orbit) Summary of Care Provided Minutes Spent on Discharge: 37 Hospital Course: KEYLA LOO, is a 57 M who presented to the emergency at [facility] on 01/24/2023 due to right eye pain and discharge.? This started approximately 6 months ago while he was incarcerated and he was recently released in October.? He stated it started in his left eye and has subsequently gone to his right eye however both eyes were still painful.? His right eye was more significantly a problem at the time of admission.? He reported that his right eye has been draining green discharge and that this had been going on for a few months.? He had photophobia and pain in his bilateral eyes is markedly better. We obtained an ESR and it was negative and noted to be 14..? He was seen on the day of admission over the [facility] ophthalmology center and they sent him to the emergency department. He has no other associated symptoms that are of concern for systemic infection.? He does admit to being a diabetic and has had his blood sugars under better control recently but has been uncontrolled previously.? Per review of previous documentation there does seem to be some historical noncompliance issues. Vital signs on presentation showed temperature of 97.3, heart rate 102, blood pressure 164/96, pulse ox was 99% on room air with a respiratory rate of 14.? CBC is unremarkable.? There is no left shift.? Coags are normal.? His chemistry panel is unremarkable other than a glucose of 269.? Liver function is normal.? UA is unremarkable.? A CT of his face was performed and is consistent with preseptal orbital cellulitis, right proptosis and no abscess presence. The case was discussed with the [facility] by the ER physician and they recommended initiating broad-spectrum IV antibiotics.? Vancomycin and Zosyn were initiated he was admitted to the medical floor. We did consult ophthalmology here and they evaluated him and added erythromycin ointment for bilateral eyes which was continued at the time of discharge. His symptoms overall improved significantly during his stay. He was still having some mild photophobia but his eye discharge had dramatically improved and his lid swelling which resulted in an inverted eyelid on presentation had calm down significantly. The mixing operator recommended that he follow-up at the [facility] over at [facility] where he was seen initially but if they were not able to see him he could follow-up there with them. He was given 5 days of IV antibiotics with improvement. I discussed the case with infectious disease and based on the cultures they recommended continued therapy with Augmentin at discharge. We will treat him for total of 14 days and a prescription for Augmentin was faxed to his local pharmacy. His blood pressure was noted to be elevated during his hospital stay and his lisinopril on admission was to be 10 mg daily. This was uptitrated to 40 mg and a new prescription was sent to the pharmacy on the day of discharge. We did obtain a hemoglobin A1c during his hospital course and was noted to be 9.1. I did discuss with him that this may increase his risk for infections and he voiced understanding. His baseline insulin is 70/30 insulin 15 units twice daily. We increased this to 20 units twice daily at discharge and I recommended follow-up with his primary care physician for ongoing blood sugar management. It appears that the patient has a history of noncompliance issues. He was able to be discharged home in stable condition on 01/28/2023 with prescriptions as noted above. He was asked to schedule appointment to be seen later on this week at the [facility]. Discharge diagnoses: Periorbital/preseptal cellulitis of the right eye B Blepharitis DM-2 uncontrolled Hypertension-uncontrolled GERD Tobacco abuse Marijuana abuse Physical Exam Const alert, oriented x3, no apparent distress, average body habitus and well nourished Constitutional Narrative: Thin, -[place] male, lying in bed resting, appears comfortable, nontoxic, still with photophobia and has towel covering eyes General Appearance: cooperative, comfortable, well kempt and well developed Orientation / Consciousness: awake, oriented to person, oriented to place and oriented to time Exam Limitations: no limitations HEENT normocephalic, head/scalp atraumatic, hearing grossly normal bilaterally and moist oral mucous membranes HEENT Narrative: Dentition is poor, Mallampati is 2 Eyes Negative for PERRL, EOMs intact bilaterally or conjunctivae normal Eyes Narrative: Scleral injection bilaterally is almost resolved in the right eye and completely resolved in the left eye, right lid is no longer inverted and flat on his eye with no further inversion, still mildly tender with palpation to the the eyelids bilaterally with ptosis, right eyelid inversion has almost resolved, Neck no lymphadenopathy and supple Neck Narrative: Trachea midline, no thyroid enlarged Resp normal respiratory effort, no retractions, no use of accessory muscles and clear to auscultation bilaterally Resp Narrative: Diffusely diminished but clear Auscultation: Negative for rales, rhonchi or wheezes Cardio regular rate, regular rhythm, S1 normal heart sound, S2 normal heart sound, no murmurs, no rub, no gallops and no clicks GI normal to inspection, nondistended, normoactive bowel sounds, soft to palpation and non-tender GI Narrative: Thin Extremity no clubbing, cyanosis or edema Extremity Narrative: Pedal pulses are 2+ Skin no rashes or lesions noted, no wounds, skin turgor normal and no jaundice Skin Narrative: I as noted above Neuro oriented x3, moves all extremities and no focal motor deficits Speech: speech normal Motor Exam: strength 5/5 throughout Psych affect normal Psych Narrative: Pleasant Weight / BMI Weight Weight: 86.183 kg Body Mass Index (BMI) 25.7 ABG / Lab / Microbiology Data Result Diagrams: 01/28/23 03:45 01/28/23 03:45 Laboratory: Laboratory Results - last 24 hr 01/27/23 11:09: POC Glucose 179 H 01/27/23 16:36: POC Glucose 212 H 01/27/23 21:38: POC Glucose 277 H 01/28/23 03:14: POC Glucose 125 H 01/28/23 03:45: Vancomycin Trough 20.2 H 01/28/23 03:45: WBC 4.8, RBC 4.08 L, Hgb 12.1 L, Hct 37.5 L, MCV 91.9, MCH 29.7, MCHC 32.3, RDW Std Deviation 46.1 H, RDW Coeff of Chuy 13.5, Plt Count 183, MPV 10.4, Immature Gran % (Auto) 0.400, Neut % (Auto) 44.6 L, Lymph % (Auto) 40.4, Irion % (Auto) 9.4, Eos % (Auto) 4.2, Baso % (Auto) 1.0, Absolute Neuts (auto) 2.1, Absolute Lymphs (auto) 1.94, Nucleated RBC % 0 01/28/23 03:45: Sodium 142, Potassium 3.3 L, Chloride 111 H, Carbon Dioxide 25.0, Anion Gap 6, BUN 12, Creatinine 0.99, Estim Creat Clear Calc 88.18, Est GFR (MDRD) Af Amer 99, Est GFR (MDRD) Non-Af 82, BUN/Creatinine Ratio 12.1, Glucose 121 H, Calcium 8.4 L 01/28/23 06:06: POC Glucose 96 Microbiology: Microbiology 01/24/23 16:35 Discharge - Eye Gram Stain - Final 01/24/23 16:35 Discharge - Eye Eye Culture - Final Cutibacterium acnes Staphylococcus aureus Staphylococcus epidermidis 01/24/23 16:35 Discharge - Eye Anaerobic Culture - Preliminary 01/24/23 15:30 Blood Culture (Wb) - Anticubital Left Blood Culture - Preliminary No growth in 48 hours. 01/24/23 14:33 Urine, Clean Catch Urine Culture - Final Culture exhibits no growth. 01/24/23 13:10 Blood Culture (Wb) - Left Forearm Blood Culture - Preliminary No growth in 48 hours. D/C Instructions Discharge Diet: 1800 Calorie Control Diet Discharge Activity: Return to Normal Activity and May Not Drive Meaningful Use Info Meaningful Use Diagnoses (Choose all that apply): None applicable Discharge Plan Admission Admit Date/Time: 01/24/23 15:30 Primary Reason for Your Visit: Eye Infection Attending Provider: Meg Worthington Primary Care Provider: Dianne Hunt Consulting Providers: Hermilo Douglass ; Lan Kothari Instructions Additional Instructions / Restrictions: 1. Please call [facility] ophthalmology and get appt to be seen later this week for recheck of your eyes 2. Use Dark Sunglasses Discharge Orders/Prescriptions Prescriptions: New oxycodone 5 mg Tablet 5 mg PO Q4H PRN PRN (Reason: Pain Score 4-10) 3 Days Qty: 18 0RF lisinopril 40 mg Tablet 40 mg PO DAILY Qty: 30 1RF amoxicillin-pot clavulanate 875-125 mg tablet 1 tab PO BID Qty: 18 0RF erythromycin 5 mg/gram (0.5 %) Ointment 1 applic EACH EYE BID 10 Days Qty: 50 0RF Continued aspirin 81 MG tablet,delayed release (DR/EC) 81 mg PO DAILY Label Comments: TAKE 1 TABLET BY MOUTH EVERY DAY omeprazole 20 MG capsule,delayed release(DR/EC) 20 mg PO DAILY Label Comments: Take 1 capsule by mouth Daily gabapentin 100 MG capsule 100 mg PO QHS Zyrtec 10 MG capsule 10 mg PO DAILY Changed Novolin 70/30 U-100 Insulin 100 UNIT/ML suspension 20 unit subcut BID Qty: 10 0RF Discontinued lisinopril 10 MG tablet 10 mg PO DAILY Label Comments: TAKE 1 TABLET BY MOUTH EVERY DAY Referrals / Follow Up: Dianne Hunt, PA [Primary Care Provider] - Within 1 Week Disposition Disposition (needs filled in before D/C Order can be placed): Home, Self Care Charges/Coding Visit Charges Inpatient E&M: 46860 Disch Hosp >30min
--- NOTE | 2023-01-28 11:11 | CASEMGMT ---
LORNE CM into pt room, pt provided with a rx for BGM with testing supplies. Pt denies any further homegoing needs. Pt ready for dc.
--- NOTE | 2023-01-28 11:36 | PHA.DC.MR ---
Pharmacy Service has performed discharge medication reconciliation for this patient. The patient's discharge medication list was reviewed for discrepancies and discrepancies were resolved. Medication education papers prepared, patient already discharged when counseling attempted. Home Medications aspirin 81 mg tablet,delayed release 81 mg PO DAILY health maintenance 03/03/18 cetirizine 10 mg capsule (Zyrtec) 10 mg PO DAILY Check with primary doctor 03/03/18 gabapentin 100 mg capsule 100 mg PO QHS Check with primary doctor 03/03/18 omeprazole 20 mg capsule,delayed release 20 mg PO DAILY gerd 03/03/18 amoxicillin 875 mg-potassium clavulanate 125 mg tablet 1 tab PO BID #18 tabs 01/28/23 erythromycin 5 mg/gram (0.5 %) eye ointment 1 applic EACH EYE BID 10 days #50 grams 01/28/23 insulin human U-100 NPH-regulr 70-30 mix 100 unit/mL subcutaneous susp (Novolin 70/30 U-100 Insulin) 20 unit (0.2 mL) subcut BID diabetes #10 mL 01/28/23 lisinopril 40 mg tablet 40 mg PO DAILY #30 tabs 01/28/23 oxycodone 5 mg tablet 5 mg PO Q4H PRN PRN Pain Score 4-10 3 days #18 tabs 01/28/23
== END 2023-01-28 11:25 | disposition home or self-care (01) | DRG 383 ==
LOC: ED 12:56 → MS3 16:26
PROVIDERS: Hospitalist; Admitting Provider Internal Medicine; Emergency Provider Emergency Medicine; PCP Physician Assistant; Visit Provider Internal Medicine
DX: L03.213 Periorbital cellulitis (principal); E11.22 Type 2 diabetes mellitus with diabetic chronic kidney disease; B95.61 Methicillin susceptible Staphylococcus aureus infection as the cause of diseases classified elsewhere; B95.7 Other staphylococcus as the cause of diseases classified elsewhere; B96.89 Other specified bacterial agents as the cause of diseases classified elsewhere; E11.65 Type 2 diabetes mellitus with hyperglycemia; Z79.4 Long term (current) use of insulin; F17.210 Nicotine dependence, cigarettes, uncomplicated; K21.9 Gastro-esophageal reflux disease without esophagitis; I10 Essential (primary) hypertension; H01.001 Unspecified blepharitis right upper eyelid; F12.10 Cannabis abuse, uncomplicated; H01.004 Unspecified blepharitis left upper eyelid; X58.XXXA Exposure to other specified factors, initial encounter; Z91.148 Patient's other noncompliance with medication regimen for other reason; Z79.82 Long term (current) use of aspirin; Z79.899 Other long term (current) drug therapy
CPT/HCPCS: 36415; 70481; 80048; 80053; 80202; 81001; 82962; 83036; 83605; 83735; 84100; 85025; 85610; 85652; 85730; 87040; 87070; 87075; 87077; 87086; 87186; 87205; 87641; 93005; 94668; 99285; J7030; J7040; J7050; J7120; Q9967; A4216

== ENCOUNTER → 2025-01-04 | Outpatient (CLI) | payer OTHER, SELFPAY ==
[2025-01-04 16:36] LABS: Absolute Lymphocyte Count 2.16 X10^3/uL (0.83-4.51); Absolute Neutrophil Count 2.2 X10^3/uL (2.0-7.7); Basophil# 0.06 X10^3/uL; Basophil% 1.2 % (0-1); Eosinophil# 0.12 X10^3/uL; Eosinophils% 2.4 % (0-5); Hematocrit 37.4 % (40-54); Hemoglobin 12.8 g/dL (13.0-16.5); Lymphocyte # 2.16 X10^3/ul (0.83-4.51); Lymphocyte % 43.4 % (19-41); Mean Corp Hgb Conc 34.2 g/dL (32-36); Mean Corpuscular Hgb 30.5 pg (27.0-32.0); Mean Corpuscular Volume 89.3 fL (80-94); Mean Platelet Vol. 9.9 fl (6.2-12.0); Monocyte# 0.45 X10^3/uL; NRBC Flagged by Analyzer 0 % (0-5); Neutrophil # 2.17 X10^3/uL (2.7-7.7); Neutrophil % 43.6 % (47-70); Platelet Count 235 K/mm3 (150-450); RBC Distribution Width CV 13.2 % (11.6-14.6); RBC Distribution Width SD 43.1 fl (35.1-43.9); Red Blood Count 4.19 M/mm3 (4.6-6.2)
[2025-01-04 17:09] LABS: ALB/GLOB Ratio 1.2 RATIO (0.9-2.4); AST(SGOT) 26 U/L (<=37); Alanine Aminotransfer ALT/SGPT 23 U/L (<=46); Albumin, Serum 3.6 g/dL (3.4-4.8); Alkaline Phosphatase 114 U/L (40-129); Anion Gap 9 (5-15); BUN 14 mg/dL (4-19); BUN/Creat Ratio 13.7 RATIO (10-20); Calcium,Total 8.6 mg/dL (7.6-11.0); Carbon Dioxide 23.7 mmol/L (21.0-32.0); Chloride 107 mmol/L (98-108); Creatinine, Serum 1.01 mg/dL (0.70-1.20); EST Glomerular Filtration Rate 85 (>60); Globulin 3.1 g/dL (2.2-4.2); Glucose 194 mg/dL (70-99); PSA,Total - Annual Screen 2.84 ng/mL (0.02-4.00); Protein, Total 6.7 g/dL (5.9-8.4); Sodium Level 140 mmol/L (133-145); Total Bilirubin 0.18 mg/dL (0.00-1.30)
[2025-01-04 17:31] LABS: Color, Urine Yellow (Yellow); Glucose, Dipstick 250 mg/dl (Normal); Ketone-Dipstick Negative (Negative); Leukocyte Esterase-Dipstick Negative /ul (Negative); Nitrite-Dipstick Negative (Negative); Occult Blood-Urine 10 /ul (Negative); Protein-Dipstick 30 mg/dl (Negative); Urine Bilirubin Dipstick Negative (Negative); Urine Clarity Clear (Clear); Urine Urobilinogen Normal (Normal)
== END | disposition home or self-care (01) ==
LOC: VSLAB 13:47
DX: R39.9 Unspecified symptoms and signs involving the genitourinary system (principal); I10 Essential (primary) hypertension
CPT/HCPCS: 36415; 80053; 81002; 84153; 84443; 85025; G0103